=== PATIENT | male | born 1950 | race Caucasian/White ===

== ENCOUNTER 2016-07-22 09:33 | Inpatient (IN) | payer BC, OTHER ==
[2016-07-07 13:05] VITALS: BMI 34.0
--- NOTE | 2016-07-07 13:42 | PAT Medication Instructions ---
Service Date Jul 07, 2016. Current Home Medication List Aspirin (Aspirin Ec), 81 MG PO QAM Atenolol (Tenormin), 25 MG PO QAM Atorvastatin (Lipitor), 40 MG PO QAM Ibuprofen (Ibuprofen), 400 MG PO PRN Losartan Potassium (Cozaar), 25 MG PO QAM Multivitamin (Multivitamin), 1 TAB PO QAM Omeprazole (Prilosec), 20 MG PO QAM Medication Instructions For Your Scheduled Surgery Ibuprofen (Ibuprofen), 400 MG PO PRN (check with surgeon for instructions) - Hold the following medications the morning of surgery: Multivitamin (Multivitamin), 1 TAB PO QAM Losartan Potassium (Cozaar), 25 MG PO QAM - Take the following medications the morning of surgery with a sip of water: Omeprazole (Prilosec), 20 MG PO QAM Atenolol (Tenormin), 25 MG PO QAM Atorvastatin (Lipitor), 40 MG PO QAM Aspirin (Aspirin Ec), 81 MG PO QAM If you have any questions please call us at [phone] (Tonja Ruvalcaba PA-C) or [phone] or [phone]
[2016-07-07 14:15] LABS: HEMATOCRIT 44.2 % (42-52); MEAN CELL VOLUME 87.2 fL (80-100); MEAN CORPUSCULAR HEMOGLOBIN 31.2 pg (25-34); MEAN CORPUSCULAR HGB CONC 35.7 g/dl (32-36); MEAN PLATELET VOLUME 10.1 fL (7.4-10.4); PLATELET COUNT 181 K/uL (130-400); RED BLOOD COUNT 5.07 M/uL (4.7-6.1); WHITE BLOOD COUNT 8.05 K/uL (4.8-10.8)
[2016-07-07 14:21] LABS: URINE APPEARANCE CLEAR (CLEAR); URINE BILIRUBIN NEG (NEG); URINE COLOR YELLOW; URINE NITRITE NEG (NEG); URINE PH 5.5 (4.5-7.5); URINE SPECIFIC GRAVITY 1.004 (1.000-1.030); UROBILINOGEN NEG (NEG)
[2016-07-07 14:34] LABS: MANUAL MICROSCOPIC REQUIRED? NO; REVIEW REQ? NO
[2016-07-07 14:51] LABS: BASO % 0.4 %; BASO ABS # 0.03 K/uL (0-0.2); COMPLETE YES; EOS % 1.4 %; IG% 0.1 %; LYMPH ABS # 4.19 K/uL (1.2-3.4); MONO % 8.6 %; NEUT % 37.5 %
--- NOTE | 2016-07-20 16:10 | HISTORY & PHYSICAL EXAMINATION ---
DATE OF ADMISSION: 07/22/2016 HISTORY OF PRESENT ILLNESS: Mr. Gaming is well known to our practice. He is having ongoing leg symptoms. He reports the pain is worsening. It is affecting daily activities. Denies bowel or bladder dysfunction. Ambulating independently. He has had prior surgery by Dr. Luna in June 2014 in the form of removal of instrumentation of L4-L5 decompression and instrumented fusion L3-L4. PAST MEDICAL HISTORY: The patient's medical history is significant for hypertension. PAST SURGICAL HISTORY: Significant for a right rotator cuff repair, right ankle surgery, left shoulder surgery, cervical surgery, and 2 lumbar fusions. ALLERGIES: None listed. MEDICATIONS: Include Zetia 10 mg a day, simvastatin 20 mg in the evening, losartan 25 mg a day, ibuprofen as needed, baby aspirin daily, atenolol 25 mg a day, potassium. SOCIAL HISTORY: He is retired. He is . Alcohol and tobacco none listed. REVIEW OF SYSTEMS: Significant for back and leg pain. FAMILY HISTORY: Noncontributory. PHYSICAL EXAMINATION: HEAD, EYES, EARS, NOSE, AND THROAT: Speech appropriate. CARDIOPULMONARY: No gross abnormalities. ABDOMEN: Soft, nontender. GENITOURINARY: Deferred. NEUROLOGIC: Cranial nerves II-XII grossly intact. MUSCULOSKELETAL: He has a well-healed lumbar incision. Ambulates with a stooped but a steady gait. Strength is intact bilateral lower extremities. 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 PLAN: Due to his decline we have reviewed surgical intervention. This would require removal of instrumentation L3-4. Lumbar decompression L1-2, L2-L3 as well as instrumented fusion T10 to the sacrum including bilateral iliac bolts. Risks, benefits, pros, cons, and alternatives were outlined in detail. The patient would like to proceed with the above-mentioned surgical planning.
[2016-07-22] VITALS (7 sets, daily range): BP systolic 98–137; BP diastolic 63–87; PULSE 58–95; TEMP 36.4–36.7; O2SAT 93–97; Ht 170.2 cm; Wt 99.3 kg
[~2016-07-22] VITALS: Ht 170.2 cm; Wt 99.3 kg
--- NOTE | 2016-07-22 07:35 | History & Physical Bridge Note ---
H&P Re-Evaluation Bridge Note: I have examined the patient, reviewed the History & Physical and in the interval since the performance of the History & Physical I have noted the following changes of clinical significance: No changes noted
[~2016-07-22 09:33] MED LIST: ASPI81TA28 PO; ATEN-173 PO; ATOR-24 PO; IBUP1CAP9 PO; LOSA25TA18 PO; MULT-506 PO; PRLSR20 PO
[2016-07-22] MEDS ORDERED: ALBUMIN HUMAN 5% 12.5 GM/250 ML VIAL IV ONE ×2 (10:46→15:12)
[2016-07-22] MEDS ORDERED: MIDAZOLAM HCL 1 MG/ML 2ML VIAL ONE (11:28)
[2016-07-22] MEDS ORDERED: FENTANYL CITRATE INJ 50 MCG/1 ML 2 ML VIAL ONE ×3 (11:28→15:07)
[2016-07-22] MEDS ORDERED: SODIUM CHLORIDE 0.9% PF 50 ML VIAL ONE (12:07)
[2016-07-22] MEDS ORDERED: BUPIVACAINE/EPINEPHRINE 0.5% MPF 1:200,000 30 ML VIAL ONE (12:07)
[2016-07-22] MEDS ORDERED: BACITRACIN 50000 UNIT VIAL ONE (12:08)
[2016-07-22] MEDS ORDERED: THROMBIN FOR SOLN 20000 UNIT KIT ONE (12:08)
[2016-07-22] MEDS ORDERED: HYDROmorphone INJ 2 MG/ML SYR/VIAL ONE (12:49)
[2016-07-22] MEDS ORDERED: ATROPINE SULFATE 0.1 MG/ML 5ML SYR IV PRN (13:45)
[2016-07-22] MEDS ORDERED: ONDANSETRON INJ 2 MG/ML 2 ML VIAL IV PRN ×2 (13:45→16:00)
[2016-07-22] MEDS ORDERED: LABETALOL HCL IV 5 MG/ML 20ML IV PRN (13:45)
[2016-07-22] MEDS ORDERED: ROCURONIUM BROMIDE 10 MG/ML 5 ML VIAL ONE ×2 (14:37→14:38)
[2016-07-22] MEDS ORDERED: NEOSTIGMINE METHYLSULFATE 5 MG/5 ML SYR ONE (14:37)
[2016-07-22] MEDS ORDERED: PROPOFOL IV EMULSION 10 MG/ML 20 ML VIAL IV ONE (14:37)
[2016-07-22] MEDS ORDERED: GLYCOPYRROLATE INJ 0.2 MG/ML VIAL ONE (14:37)
[2016-07-22] MEDS ORDERED: DEXAMETHASONE SOD INJ 4 MG/ML VIAL ONE (14:41)
[2016-07-22] MEDS ORDERED: ONDANSETRON INJ 2 MG/ML 2 ML VIAL ONE (14:41)
[2016-07-22] MEDS ORDERED: PHENYLEPHRINE 100MCG/ML 5ML SYR ONE (14:56)
[2016-07-22] MEDS ORDERED: EpHEDrine SULFATE 50MG/5ML SYR ONE (14:56)
[2016-07-22] MEDS ORDERED: SODIUM CHLORIDE 0.9% 1000ML 1,000 ML IV SCH (15:49)
--- NOTE | 2016-07-22 15:49 | [facility] Post Operative Brief Note ---
Immediate Operative Summary Operative Date Jul 22, 2016. Pre-Operative Diagnosis Adjacent Level Stenosis; Moderate to Severe at L2 - L3 Post-Operative Diagnosis Adjacent Level Stenosis; Moderate to Severe at L2 - L3 Procedure(s) Performed L1-L2, L2-L3 Lumbar Laminectomy, Decompression; Pedicle Screw Fixation; Placement of Interbody Device; T10-S1 Posterolateral Fusion; Application of Allograft, Bone Morphogenetic Protein; Iliac [place] Fixation; L3-L4 Hardware Removal Surgeon Dr. Trevor Luna Graphic Art Designer Surgeon(s) Zaida Antunez PA-C Estimated Blood Loss 1000 Findings stenosis Specimens A. Lumbar Spine Explants
[2016-07-22] MEDS ORDERED: MoRPHine SULFATE 2 MG/ML CARP ONE (15:50)
[2016-07-22] MEDS ORDERED: FLOSEAL HEMOSTATIC MATRIX 10ML TOP ONE (15:52)
[2016-07-22] MEDS ORDERED: LORAZEPAM INJ 0.5 MG in SYRINGE 0 ML IV PRN (16:00)
[2016-07-22] MEDS ORDERED: NALOXONE HCL 0.4 MG/1 ML VIAL/CARP IV PRN ×2 (16:00)
[2016-07-22] MEDS ORDERED: ACETAMINOPHEN IV 100 ML IV PRN (16:00)
[2016-07-22] MEDS ORDERED: BISACODYL 10 MG SUPP PR PRN (16:00)
[2016-07-22] MEDS ORDERED: DO NOT ADMINISTER PNEUMOCOCCAL VACCINE PRN ×2 (16:00)
[2016-07-22] MEDS ORDERED: MAGNESIUM HYDROXIDE SUSP 30 ML UDC PO PRN (16:00)
[2016-07-22] MEDS ORDERED: ACETAMINOPHEN 500 MG TAB PO PRN (16:00)
[2016-07-22] MEDS ORDERED: SOD PHOSPHATE/SOD BIPHOSPHATE ENEMA 132 ML BTL PR PRN (16:00)
[2016-07-22] MEDS ORDERED: LORAZEPAM 0.5 MG TAB PO PRN (16:00)
[2016-07-22] MEDS ORDERED: hydrOXYzine HCL 25 MG TAB PO PRN (16:00)
[2016-07-22] MEDS ORDERED: FAMOTIDINE 20 MG TAB PO PRN (16:00)
[2016-07-22] MEDS ORDERED: ALUMINUM/MAGNESIUM SUSP 30 ML UDC PO PRN (16:00)
[2016-07-22] MEDS ORDERED: METOCLOPRAMIDE HCL INJ 5 MG/ML 2 ML VIAL IV PRN (16:00)
[2016-07-22] MEDS ORDERED: PROMETHAZINE HCL INJ 12.5 MG in SODIUM CHLORIDE 0.9% 50ML 50 ML IV PRN (16:00)
[2016-07-22] MEDS ORDERED: DO NOT ADMINISTER FLU VACCINE PRN ×3 (16:00)
--- NOTE | 2016-07-22 16:19 | DIAGNOSTIC IMAGING REPORT ---
INTRAOPERATIVE RADIOGRAPHS CLINICAL HISTORY: T10-S1 spinal fusion with iliac bolt placement. Fluoroscopy time: 48 seconds. FINDINGS: 7 spot fluoroscopic views of the thoracal lumbar spine are presented. There is evidence of extensive thoracolumbar spinal fusion, reportedly from T10 to S1. Iliac bolts are in place. There is been discectomy at several levels. The orthopedic hardware appears intact. IMPRESSION: Intraoperative images from T10 to S1 spinal fusion with iliac bolt placement as above. Electronically signed by: Don Marks M.D. 07/22/2016 4:18 PM Dictated Date/Time: 07/22/2016 4:17 PM
[2016-07-22] MEDS ORDERED: HYDROmorphone HCL 0.5MG/ML 50 ML CASSETTE ONE (16:23)
[2016-07-22] MEDS: HYDROmorphone INJ 2 MG/ML SYR/VIAL IV PRN ×2 (16:34→16:39)
--- NOTE | 2016-07-22 17:06 | OPERATIVE REPORT ---
DATE OF OPERATION: 07/22/2016 PREOPERATIVE DIAGNOSIS: Spinal stenosis. POSTOPERATIVE DIAGNOSIS: Same. PROCEDURES PERFORMED: 1. Removal of posterior instrumentation, L3-L4. 2. Exploration of fusion, L3-L4. 3. Lumbar decompression, medial facetectomies, foraminotomies L1-L2, L2-L3. 4. Posterior spinal fusion T10-S1. 5. Bilateral SI joint fusions. 6. Placement of posterior segmental instrumentation using Medicrea rods and screws as well as a crosslink including bilateral iliac bolts T10-S1. 7. Interbody fusion L2-L3. 8. Placement of PEEK cage 12 x 22 mm at L2-L3. 9. Placement of locally harvested morcellized autograft in posterior gutters. 10. Placement of Infuse collagen sponge combined with Mastergraft in posterior gutters and [place] bone grafting in the interbody space. SURGEON: Dr. Trevor Luna. STARTER MECHANIC: STEVEN Bruno. Due to the complex nature of the procedure, the entire surgery was performed with the product development assistant of STEVEN Bruno. The emergency veterinary assistant, under direct supervision, was involved in the actual performance of all aspects of the surgical procedure including hemostasis, tissue retraction and incision, instrument management, patient positioning, and wound closure. ANESTHESIA: General. DISPOSITION: The patient was awakened and taken to PACU in stable condition. HISTORY OF PATIENT'S PROBLEMS: This is a 65-year-old male who presents with above-mentioned diagnosis. After failing an extensive course of nonoperative care, elected to undergo the above-mentioned procedure. Risks, benefits, pros, cons, and alternatives were outlined in detail preoperatively. DESCRIPTION OF PROCEDURE: The patient was met with preoperatively, case discussed and all questions were addressed. At that point, patient was taken back to operative suite and after undergoing successful general intubation by the department of anesthesia, was placed in prone position on Kan table atop the Zak frame. All bony prominences were well padded and the eyes were inspected to ensure there was no external pressure placed upon them. At this point, thoracolumbar spine was prepped and draped in normal sterile fashion. Sharp dissection with the assistance of Bovie cautery was performed down to and exposing the lamina and transverse processes of T10, T11, T12, L1, L2 and instrumentation at L3, L4 levels and the lamina of L4, L5 and the sacral ala bilaterally. I then proceeded to remove the hardware at L4-L5 bilaterally exploring the fusion mass noting to be intact. I then performed a complete laminectomy of L2, partial laminectomy of L1 addressing severe lateral recess and foraminal disease. Pedicle screws were then placed in T10, T11, T12, L1, L2, L3, L4, S1, as well as bilateral iliac bolts. Through a transforaminal approach on the left, a complete discectomy at L2-L3 was performed, endplates curetted to subcortical bleeding bone and a 12 x 22 mm PEEK cage filled with [place] bone grafting tapped into position. Appropriate size rods were then cut, contoured and locked into final position bilaterally including a crosslink and transverse processes of T10, T11, T12, L1, L2, L3, L5, sacral ala and bilateral SI joints were burred to subcortical bleeding bone. Infuse collagen sponge combined with Mastergraft locally harvested morselized autograft was placed. A 7 flat CARINA drain was inserted. Incision was closed with 1-0 Vicryl in the fascia, 2-0 Vicryl subcutaneously, 4-0 Monocryl for final skin closure. Steri-Strips and sterile dressing placed. The patient was awakened and taken to PACU in stable condition. I attest to the content of the Intraoperative Record and any orders documented therein. Any exceptio ns are noted below.
--- NOTE | 2016-07-22 17:10 | Anesthesiology Progress Note ---
Anesthesia Post Op Note Date & Time Jul 22, 2016 at 17:09 Vital Signs Pain Intensity: 4 Vital Signs Past 12 Hours Date Time Temp Pulse Resp B/P Pulse Ox O2 Delivery O2 Flow Rate FiO2 07/22/16 17:05 36.7 79 16 106/59 95 Nasal Cannula 4 07/22/16 17:02 108/60 07/22/16 17:00 98/62 07/22/16 16:58 70 12 07/22/16 16:58 70 12 95 07/22/16 16:55 109/66 07/22/16 16:53 75 12 94 07/22/16 16:53 75 12 07/22/16 16:52 106/60 07/22/16 16:50 83/59 07/22/16 16:48 73 16 07/22/16 16:48 73 16 92 07/22/16 16:45 101/55 07/22/16 16:43 78 16 07/22/16 16:43 78 16 93 07/22/16 16:40 110/58 07/22/16 16:38 75 12 07/22/16 16:38 75 12 90 07/22/16 16:35 111/86 07/22/16 16:33 101 21 07/22/16 16:33 101 21 95 07/22/16 16:32 105/79 07/22/16 16:28 85 18 07/22/16 16:28 85 18 99 07/22/16 16:25 119/65 07/22/16 16:23 92 15 128/74 99 07/22/16 16:23 92 15 07/22/16 16:23 37.3 92 16 128/74 98 Mask 10 07/22/16 10:23 36.7 58 20 137/87 94 Room Air Notes Mental Status: alert / awake / arousable, participated in evaluation Pt Amnestic to Procedure: Yes Nausea / Vomiting: adequately controlled Pain: adequately controlled Airway Patency, RR, SpO2: stable & adequate BP & HR: stable & adequate Hydration State: stable & adequate Anesthetic Complications: no major complications apparent
[2016-07-22] MEDS: HYDROmorphone HCL 0.5MG/ML 50 ML CASSETTE IV PRN ×2 (17:29→22:38)
[2016-07-22] MEDS: LACTATED RINGER'S 1000ML 1,000 ML IV SCH ×2 (18:19→21:28)
--- NOTE | 2016-07-22 18:36 | Medical Consult ---
Consultation Date of Consultation: Jul 22, 2016. Attending Physician: Trevor Luna D.O. Reason for Consultation: Post Op Medical Management History of Present Illness 65 year old male who is s/p L1-2 laminectomy and decompression, T10-S1 fusion, L3-4 hardware removal today by Dr. Luna. Patient reports increasing back pain since December 2015. He failed outpatient conservative measures and presented for the planned procedure today. Post operatively the patient is having incisional back pain. He currently rates it #8/10. Nurse is currently giving pain medication. He denies any radiation of the pain into his legs. No numbness or tingling to BLLE. He denies chest pain and shortness of breath. No abdominal pain, nausea, or vomiting. He denies lightheadedness, dizziness, and diaphoresis. Ogles[place] is in place draining clear yellow urine. 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 Status: Chronic (2) Dyslipidemia Status: Chronic (3) HTN (hypertension) Status: Chronic (4) Pulmonary embolism Status: Chronic Surgical Problems: (1) H/O repair of left rotator cuff Status: Chronic (2) History of surgery on arm Permanent Comment: left Status: Chronic (3) Hx of appendectomy Status: Chronic (4) S/P cervical spinal fusion Status: Chronic (5) S/P cholecystectomy Status: Chronic (6) S/P IVC filter Permanent Comment: s/p removal Status: Chronic (7) S/P lumbar fusion Status: Chronic Social History Smoking Status: Never Smoker Alcohol Use: none Allergies Coded Allergies: No Known Allergies (Unverified , 07/22/16) Home Medications Ibuprofen 200 Mg Cap 400 Mg PO PRN Prilosec (Omeprazole) 20 Mg Capcr 20 Mg PO QAM Lipitor (Atorvastatin Calcium) 40 Mg Tab 40 Mg PO QAM Multivitamin (Multivitamins) Tab 1 Tab PO QAM Cozaar (Losartan Potassium) 25 Mg Tab 25 Mg PO QAM Aspirin Ec (Aspirin) 81 Mg Tab 81 Mg PO QAM Tenormin (Atenolol) 25 Mg Tab 25 Mg PO QAM Current Inpatient Medications Current Inpatient Medications Medications (Trade) Dose Ordered Sig/Debby Route Start Time Stop Time Status Last Admin Dose Admin Cefazolin Sodium 60 ml @ 100 mls/hr PREOP IV 07/23/16 06:00 07/23/16 18:00 07/22/16 12:24 100 MLS/HR Lactated Ringer's (Lr 1000ml) 1,000 ml @ 15 mls/hr Q24H IV 07/23/16 06:00 07/24/16 05:59 07/22/16 10:36 15 MLS/HR Ondansetron HCl (Zofran Inj) 4 mg ONE PRN IV 07/22/16 13:45 07/22/16 18:45 Atropine Sulfate (Atropine Sulfate 0.1MG/Ml Inj) 0.5 mg Q1M PRN IV 07/22/16 13:45 07/22/16 18:45 Hydromorphone HCl (Dilaudid Inj) 0.25 mg Q5M PRN IV 07/22/16 13:45 07/22/16 18:45 07/22/16 16:39 0.25 MG Labetalol HCl 5 mg 5 mg Q5M PRN IV 07/22/16 13:45 07/22/16 18:45 Dexamethasone Sodium Phosphate 6 mg/Syringe 1.5 ml @ 1 mls/min Q8H IV 07/22/16 22:00 07/23/16 14:02 Promethazine HCl/ Sodium Chloride (Phenergan Inj/ Nss 50ml) 50.5 ml @ 202 mls/hr Q6H PRN IV 07/22/16 16:00 08/21/16 15:59 Ondansetron HCl (Zofran Inj) 4 mg Q6H PRN IV 07/22/16 16:00 08/21/16 15:59 Metoclopramide HCl (Reglan Inj) 10 mg Q6H PRN IV 07/22/16 16:00 08/21/16 15:59 Lorazepam 0.5 mg 0.5 mg Q8H PRN PO 07/22/16 16:00 08/21/16 15:59 Lorazepam/Syringe (Ativan Inj/ Syringe) 0.25 ml @ 1 mls/min Q8H PRN IV 07/22/16 16:00 08/21/16 15:59 07/22/16 18:18 1 MLS/MIN Pneumococcal Polysaccharide Vaccine 1 ea PRN PRN N/A 07/22/16 16:00 08/21/16 15:59 Influenza Virus Vacc Triv Types A&B 1 ea PRN PRN N/A 07/22/16 16:00 08/21/16 15:59 Polyethylene (Miralax Powder Packet) 17 gm Q6 PO 07/24/16 06:00 08/23/16 05:59 Bisacodyl (Dulcolax Supp) 10 mg DAILY PRN MA 07/22/16 16:00 08/21/16 15:59 Magnesium Hydroxide (Milk Of Magnesia Susp) 30 ml DAILY PRN PO 07/22/16 16:00 08/21/16 15:59 Hydromorphone HCl (Dilaudid Inj) 0.5 mg Q3H PRN IV 07/23/16 06:00 08/06/16 05:59 Oxycodone HCl 5-10mg prn moderate to sev... Q4H PRN PO 07/23/16 06:00 08/06/16 05:59 Cefazolin Sodium 2000 mg/Dextrose 60 ml @ 100 mls/hr Q8H IV 07/22/16 20:00 07/23/16 04:35 Lactated Ringer's (Lr 1000ml) 1,000 ml @ 150 mls/hr Q6H40M IV 07/22/16 15:49 08/21/16 15:48 07/22/16 18:19 150 MLS/HR Acetaminophen 1000 mg 1,000 mg Q8H PRN PO 07/22/16 16:00 08/21/16 15:59 Acetaminophen (Ofirmev Iv) 100 ml @ 400 mls/hr Q8H PRN IV 07/22/16 16:00 08/21/16 15:59 07/22/16 18:17 400 MLS/HR Naloxone HCl (Narcan Inj) 0.1 mg Q5M PRN IV 07/22/16 16:00 08/21/16 15:59 Senna/Docusate Sodium (Senokot S Tab) 2 tab HS PO 07/22/16 21:00 08/21/16 20:59 Sodium Biphosphate/ Sodium Phosphate (Fleet Enema) 132 ml ONE PRN MA 07/22/16 16:00 08/21/16 15:59 Hydroxyzine HCl (Vistaril Tab) 25 mg Q8H PRN PO 07/22/16 16:00 08/21/16 15:59 Al Hydroxide/Mg Hydroxide (Maalox Susp) 30 ml Q6H PRN PO 07/22/16 16:00 08/21/16 15:59 Famotidine (Pepcid Tab) 20 mg Q12 PRN PO 07/22/16 16:00 08/21/16 15:59 Diphenhydramine HCl (Benadryl Cap) 25 mg Q6H PRN PO 07/22/16 16:00 08/21/16 15:59 Miscellaneous Information (Discontinue CERTIFIED ANESTHESIOLOGIST ASSISTANT) 1 ea TODAY@0600 ONCE N/A 07/23/16 06:00 07/23/16 06:01 Naloxone HCl (Narcan Inj) 0.1 mg Q5M PRN IV 07/22/16 16:00 07/23/16 06:00 Hydromorphone HCl 25 mg 25 mg PRN PRN IV 07/22/16 16:00 07/23/16 06:00 07/22/16 17:29 25 MG Sodium Chloride (Nss 1000ml) 1,000 ml @ 15 mls/hr Q24H IV 07/22/16 15:49 07/23/16 06:00 Aspirin (Ecotrin Tab) 81 mg QAM PO 07/23/16 09:00 08/22/16 08:59 Atenolol (Tenormin Tab) 25 mg QAM PO 07/23/16 09:00 08/22/16 08:59 Atorvastatin Calcium (Lipitor Tab) 40 mg QAM PO 07/23/16 09:00 08/22/16 08:59 Losartan Potassium (coZAAR TAB) 25 mg QAM PO 07/23/16 09:00 08/22/16 08:59 Pantoprazole Sodium (Protonix Tab) 40 mg QAM PO 07/23/16 09:00 08/22/16 08:59 Hydromorphone HCl (Dilaudid Inj) 1 mg Q3H PRN IV 07/23/16 06:00 08/06/16 05:59 Review of Systems 10 point review of systems was completed with the pertinent positives and negatives noted per the HPI Physical Exam Date Time Temp Pulse Resp B/P Pulse Ox O2 Delivery O2 Flow Rate FiO2 07/22/16 18:00 36.6 86 14 107/69 97 Nasal Cannula 4.0 07/22/16 17:30 36.5 85 14 99/63 97 Nasal Cannula 4.0 07/22/16 17:30 Nasal Cannula 4.0 07/22/16 17:30 Nasal Cannula 4.0 07/22/16 17:18 79 13 07/22/16 17:18 80 13 95 07/22/16 17:15 104/67 07/22/16 17:13 87 14 07/22/16 17:13 87 14 96 07/22/16 17:10 105/60 07/22/16 17:08 86 19 106/59 96 07/22/16 17:08 86 19 07/22/16 17:07 83/61 07/22/16 17:05 98/59 07/22/16 17:05 36.7 79 16 106/59 95 Nasal Cannula 4 07/22/16 17:03 78 16 95 07/22/16 17:03 78 16 07/22/16 17:02 108/60 07/22/16 17:00 98/62 07/22/16 16:58 70 12 07/22/16 16:58 70 12 95 07/22/16 16:55 109/66 07/22/16 16:53 75 12 94 07/22/16 16:53 75 12 07/22/16 16:52 106/60 07/22/16 16:50 83/59 07/22/16 16:48 73 16 07/22/16 16:48 73 16 92 07/22/16 16:45 101/55 07/22/16 16:43 78 16 07/22/16 16:43 78 16 93 07/22/16 16:40 110/58 07/22/16 16:38 75 12 07/22/16 16:38 75 12 90 07/22/16 16:35 111/86 07/22/16 16:33 101 21 07/22/16 16:33 101 21 95 07/22/16 16:32 105/79 07/22/16 16:28 85 18 07/22/16 16:28 85 18 99 07/22/16 16:25 119/65 17 16:23 92 15 128/74 99 17 16:23 92 15 17 16:23 37.3 92 16 128/74 98 Mask 10 07/22/16 10:23 36.7 58 20 137/87 94 Room Air General Appearance: no apparent distress Head: normocephalic Eyes: normal inspection ENT: hearing grossly normal Neck: supple, no JVD Respiratory/Chest: lungs clear, normal breath sounds, no respiratory distress Cardiovascular: regular rate, rhythm, no edema, normal peripheral pulses Abdomen/GI: normal bowel sounds, non tender, soft, + distended Back: + pertinent finding (s/p back surgery, CSM checks intact to BLLE, pedal pushes and pulls strong BL) Extremities/Musculoskelatal: normal inspection, no calf tenderness Neurologic/Psych: no motor/sensory deficits, alert, normal mood/affect, oriented x 3 Skin: normal color, warm/dry Laboratory Results Last 24 Hours Test 07/22/16 18:06 Assessment & Plan S/P L1-2 LAMINECTOMY, DECOMPRESSION T10-S1 FUSION L3-4 HARDWARE REMOVAL - POD#0 - activity and wound care orders as per ortho - pain control with bowel regimen - PT/OT - monitor H/H for acute blood loss anemia and transfuse blood products PRN HTN - BP controlled, continue losartan and atenolol HX DVT/PE - hx of in 2012, provoked after surgery - had IVF filter in place but has been removed - recommend pharmacologic prophylaxis when ok with surgery HLD - continue statin DVT PROPHYLAXIS - as above Thank you for this consultation. We will follow the patient with you during their hospital stay. You can reach a member of the [facility] Hospitalist Team 13/12 via pager @ . Agree with above consult note. Briefly 65M is s/p shyam surgery. has back pain. afebrile. denies chest opain or sob. p/e ge not in distress Cvs s1 and s2 heard no murmurs Rs cta b/l no added sounds Abd benign musculoskeletal s/p back surgery. a/p back surgery management as per ortho HTN home meds will monitor
[2016-07-22] MEDS: CEFAZOLIN IV 2,000 MG in DEXTROSE 5% 50ML 50 ML IV SCH (20:30)
[2016-07-22] MEDS: DOCUSATE SODIUM/SENNA 50/8.6MG TAB PO SCH (20:30)
[2016-07-22] MEDS: DEXAMETHASONE INJ 6 MG in SYRINGE 0 ML IV SCH (21:28)
[2016-07-23] VITALS (9 sets, daily range): BP systolic 104–121; BP diastolic 67–79; PULSE 79–92; TEMP 36.8–37.2; O2SAT 91–98
[2016-07-23] MEDS: CEFAZOLIN IV 2,000 MG in DEXTROSE 5% 50ML 50 ML IV SCH (03:58)
[2016-07-23] MEDS: LACTATED RINGER'S 1000ML 1,000 ML IV SCH (03:58)
[2016-07-23 05:47] LABS: COMPLETE YES; HEMATOCRIT 29.2 % (42-52); IG% 0.2 %; LYMPH % 12.5 %; LYMPH ABS # 1.55 K/uL (1.2-3.4); MEAN CELL VOLUME 86.6 fL (80-100); MEAN CORPUSCULAR HGB CONC 34.6 g/dl (32-36); MEAN PLATELET VOLUME 9.9 fL (7.4-10.4); MONO % 6.4 %; NEUT % 80.9 %; PLATELET COUNT 140 K/uL (130-400); RED BLOOD COUNT 3.37 M/uL (4.7-6.1); WHITE BLOOD COUNT 12.44 K/uL (4.8-10.8)
[2016-07-23] MEDS: DEXAMETHASONE INJ 6 MG in SYRINGE 0 ML IV SCH ×2 (05:53→13:40)
[2016-07-23] MEDS ORDERED: NURSING DECISION MEDICATION ORDER SCH (06:00)
[2016-07-23] MEDS ORDERED: LACTATED RINGER'S 1000ML 1,000 ML IV SCH (06:00)
[2016-07-23] MEDS ORDERED: CEFAZOLIN 2000 MG/60 ML D5W IV SCH (06:00)
[2016-07-23] MEDS ORDERED: HYDROmorphone INJ 0.5 MG/0.5 ML SYR IV PRN (06:00)
[2016-07-23] MEDS ORDERED: DC PCA ONE (06:00)
[2016-07-23] MEDS ORDERED: HYDROmorphone INJ 1 MG/ML SYR IV PRN (06:00)
[2016-07-23 06:14] LABS: BUN/CREATININE RATIO 17.1 (10-20); POTASSIUM 4.1 mmol/L (3.5-5.1)
[2016-07-23 06:18] LABS: CALCIUM 8.5 mg/dl (8.5-10.1)
[2016-07-23] MEDS: PANTOprazole SOD 40 MG TAB PO SCH (07:47)
--- NOTE | 2016-07-23 08:11 | Anesthesiology Progress Note ---
Anesthesia Post Op Note Date & Time Jul 23, 2016 at 08:11 Vital Signs Pain Intensity: 2.0 Vital Signs Past 12 Hours Date Time Temp Pulse Resp B/P Pulse Ox O2 Delivery O2 Flow Rate FiO2 07/23/16 07:49 37.0 92 20 110/79 92 Room Air 07/23/16 06:50 36.8 85 16 115/68 95 Room Air 07/23/16 03:27 37.0 92 16 119/74 96 Nasal Cannula 2.0 07/22/16 23:09 36.7 90 16 109/68 97 Nasal Cannula 2.0 07/22/16 22:40 Nasal Cannula 2.0 07/22/16 20:29 36.4 84 18 102/68 97 Nasal Cannula 4.0 Notes Mental Status: alert / awake / arousable, participated in evaluation Pt Amnestic to Procedure: Yes Nausea / Vomiting: adequately controlled Pain: adequately controlled Airway Patency, RR, SpO2: stable & adequate BP & HR: stable & adequate Hydration State: stable & adequate Anesthetic Complications: no major complications apparent
[2016-07-23] MEDS: ATORVASTATIN 40 MG TAB PO SCH (08:40)
[2016-07-23] MEDS: ASPIRIN 81 MG ECTAB PO SCH (08:40)
[2016-07-23] MEDS: OXYCODONE HCL IR 5 MG TAB (IMMEDIATE RELEASE) PO PRN (08:41)
[2016-07-23] MEDS: LOSARTAN POTASSIUM 25 MG TAB PO SCH (09:37)
--- NOTE | 2016-07-23 11:01 | PROGRESS NOTE ---
DATE: 07/23/2016 SUBJECTIVE: Postop day #1. Back pain is controlled. Leg pain markedly improved. Vital signs stable. T-max 37.0. CARINA drained 240 mL. Hematocrit 29.2. OBJECTIVE: On exam, the patient is sitting in chair at bedside. He has good strength to testing and is much more comfortable. ASSESSMENT: Status post thoracolumbar decompression and fusion. PLAN: At this time, will continue physical therapy, advance his bowel regimen, monitor his H\T\H and consider discharge on Tuesday.
[2016-07-23] MEDS: KETOROLAC TROMETHAMINE 30 MG/ML VIAL IV PRN ×2 (11:36→20:57)
--- NOTE | 2016-07-23 19:30 | Progress Note ---
Internal Med Progress Note Date of Service: Jul 23, 2016. Provider Documentation: SUBJECTIVE: resting comfortably ambulating fine afebrile pain is better no chest pain or sob OBJECTIVE: Vital Signs-as noted below Exam: General-alert and awake and oriented. Not in distress ENT-normal hearing Neck-no neck masses Lungs-cta b/l no wheezing or crackles Heart-s1 and s2 heard, regular rate and rhythm no murmurs Abdomen-soft bowel sounds present non tender no distension Extremities-no edema no erythema Musculoskeletal s/p back surgery Dressing and drain intact Neuro-alert and awake moves extremities Lab data as noted below. ASSESSMENT & PLAN: S/P L1-2 LAMINECTOMY, DECOMPRESSION T10-S1 FUSION L3-4 HARDWARE REMOVAL POD#1 management as per ortho HTN stable on losartan and atenolol HX DVT/PE hx of in 2013, provoked after surgery had IVF filter in place but has been removed recommend pharmacologic prophylaxis as soon as possible when ok with surgery HLD on statin DVT PROPHYLAXIS as per ortho DISPOSITION as per ortho Vital Signs: Date Time Temp Pulse Resp B/P Pulse Ox O2 Delivery O2 Flow Rate FiO2 07/23/16 15:35 93 Room Air 07/23/16 15:25 37.1 79 18 119/73 93 Room Air 07/23/16 11:52 36.9 85 22 112/70 91 Room Air 07/23/16 10:20 98 Room Air 07/23/16 10:10 92 96 07/23/16 07:49 37.0 92 20 110/79 92 Room Air 07/23/16 07:15 Room Air 07/23/16 06:50 36.8 85 16 115/68 95 Room Air 07/23/16 03:27 37.0 92 16 119/74 96 Nasal Cannula 2.0 07/22/16 23:09 36.7 90 16 109/68 97 Nasal Cannula 2.0 07/22/16 22:40 Nasal Cannula 2.0 07/22/16 20:29 36.4 84 18 102/68 97 Nasal Cannula 4.0 07/22/16 19:30 36.7 95 16 109/76 93 Nasal Cannula 4.0 Lab Results: Results Past 24 Hours Test 07/23/16 05:22 Range/Units White Blood Count 12.44 4.8-10.8 K/uL Red Blood Count 3.37 4.7-6.1 M/uL Hemoglobin 10.1 14.0-18.0 g/dL Hematocrit 29.2 42-52 % Mean Corpuscular Volume 86.6 80-100 fL Mean Corpuscular Hemoglobin 30.0 25-34 pg Mean Corpuscular Hemoglobin Concent 34.6 32-36 g/dl Platelet Count 140 130-400 K/uL Mean Platelet Volume 9.9 7.4-10.4 fL Neutrophils (%) (Auto) 80.9 % Lymphocytes (%) (Auto) 12.5 % Monocytes (%) (Auto) 6.4 % Eosinophils (%) (Auto) 0.0 % Basophils (%) (Auto) 0.0 % Neutrophils # (Auto) 10.06 1.4-6.5 K/uL Lymphocytes # (Auto) 1.55 1.2-3.4 K/uL Monocytes # (Auto) 0.80 0.11-0.59 K/uL Eosinophils # (Auto) 0.00 0-0.5 K/uL Basophils # (Auto) 0.00 0-0.2 K/uL RDW Standard Deviation 41.6 36.4-46.3 fL RDW Coefficient of Variation 13.2 11.5-14.5 % Immature Granulocyte % (Auto) 0.2 % Immature Granulocyte # (Auto) 0.03 0.00-0.02 K/uL Sodium Level 141 136-145 mmol/L Potassium Level 4.1 3.5-5.1 mmol/L Chloride Level 106 98-107 mmol/L Carbon Dioxide Level 24 21-32 mmol/L Anion Gap 11.0 3-11 mmol/L Blood Urea Nitrogen 17 7-18 mg/dl Creatinine 1.00 0.60-1.40 mg/dl Est Creatinine Clear Calc Drug Dose 82.7 ml/min Estimated GFR () 91.1 Estimated GFR (Non- 78.6 BUN/Creatinine Ratio 17.1 10-20 Random Glucose 161 70-99 mg/dl Calcium Level 8.5 8.5-10.1 mg/dl
[2016-07-23] MEDS: DOCUSATE SODIUM/SENNA 50/8.6MG TAB PO SCH (20:57)
[2016-07-24] MEDS: POLYETHYLENE (MIRALAX) 17 GM PACK PO SCH ×4 (05:32→23:24)
[2016-07-24 07:50] VITALS: BP 117/73; PULSE 73; TEMP 37; O2SAT 94
[2016-07-24] MEDS: ATORVASTATIN 40 MG TAB PO SCH (08:42)
[2016-07-24] MEDS: PANTOprazole SOD 40 MG TAB PO SCH (08:42)
[2016-07-24] MEDS: LOSARTAN POTASSIUM 25 MG TAB PO SCH (08:42)
[2016-07-24] MEDS: ASPIRIN 81 MG ECTAB PO SCH (08:42)
[2016-07-24] MEDS: KETOROLAC TROMETHAMINE 30 MG/ML VIAL IV PRN ×2 (08:46→17:34)
[2016-07-24 16:05] VITALS: BP 114/72; PULSE 63; TEMP 36.8; O2SAT 95
[2016-07-24] MEDS: DOCUSATE SODIUM/SENNA 50/8.6MG TAB PO SCH (21:56)
[2016-07-24 23:01] VITALS: BP 114/64; PULSE 61; TEMP 37; O2SAT 96
[2016-07-25] MEDS: OXYCODONE HCL IR 5 MG TAB (IMMEDIATE RELEASE) PO PRN ×2 (04:32→22:54)
[2016-07-25] MEDS: POLYETHYLENE (MIRALAX) 17 GM PACK PO SCH ×3 (05:46→17:59)
[2016-07-25 06:44] VITALS: BP 119/77; PULSE 70; TEMP 37.1; O2SAT 96
[2016-07-25 08:20] VITALS: BP 112/72; PULSE 87
[2016-07-25] MEDS: ASPIRIN 81 MG ECTAB PO SCH (08:21)
[2016-07-25] MEDS: ATORVASTATIN 40 MG TAB PO SCH (08:22)
[2016-07-25] MEDS: PANTOprazole SOD 40 MG TAB PO SCH (08:22)
[2016-07-25] MEDS: LOSARTAN POTASSIUM 25 MG TAB PO SCH (08:22)
[2016-07-25] MEDS: KETOROLAC TROMETHAMINE 30 MG/ML VIAL IV PRN ×2 (08:27→15:22)
[2016-07-25 15:10] VITALS: BP 100/63; PULSE 67; TEMP 37; O2SAT 95
--- NOTE | 2016-07-25 19:09 | Progress Note ---
Internal Med Progress Note Date of Service: Jul 25, 2016. Provider Documentation: SUBJECTIVE: resting comfortably says pain is better ambulating fine denies any sob afebrile OBJECTIVE: Vital Signs-as noted below Exam: General-alert and awake and oriented. Not in distress ENT-normal hearing Neck-no neck masses Lungs-cta b/l no wheezing or crackles Heart-s1 and s2 heard, regular rate and rhythm no murmurs Abdomen-soft bowel sounds present non tender no distension Extremities-no edema no erythema Musculoskeletal s/p back surgery Dressing and drain intact Neuro-alert and awake moves extremities Lab data as noted below. ASSESSMENT & PLAN: S/P L1-2 LAMINECTOMY, DECOMPRESSION T10-S1 FUSION L3-4 HARDWARE REMOVAL POD#3 management as per ortho HTN stable on losartan and atenolol will monitor HX DVT/PE hx of in 2013, provoked after surgery had IVF filter in place but has been removed recommend pharmacologic prophylaxis as soon as possible when ok with surgery HLD on statin DVT PROPHYLAXIS as per ortho DISPOSITION as per ortho Vital Signs: Date Time Temp Pulse Resp B/P Pulse Ox O2 Delivery O2 Flow Rate FiO2 07/25/16 16:02 Room Air 07/25/16 15:10 37.0 67 18 100/63 95 Room Air 07/25/16 08:20 87 112/72 07/25/16 08:15 Room Air 07/25/16 06:44 37.1 70 18 119/77 96 Room Air 07/24/16 23:15 Room Air 07/24/16 23:01 37.0 61 16 114/64 96 Room Air
[2016-07-25] MEDS: DOCUSATE SODIUM/SENNA 50/8.6MG TAB PO SCH (20:52)
[2016-07-25] MEDS ORDERED: NURSING VERBAL MED ORDER ONE (23:15)
[2016-07-25 23:26] VITALS: BP 107/67; PULSE 69; TEMP 37.2; O2SAT 95
[2016-07-26 06:26] VITALS: BP 121/73; PULSE 69; TEMP 36.8; O2SAT 95
[2016-07-26] MEDS: KETOROLAC TROMETHAMINE 30 MG/ML VIAL IV PRN ×3 (07:09→21:05)
[2016-07-26 07:50] VITALS: BP 120/82; PULSE 70; TEMP 36.8; O2SAT 96
[2016-07-26 08:14] LABS: BUN/CREATININE RATIO 13.9 (10-20); CALCIUM 8.5 mg/dl (8.5-10.1); CREATININE 0.95 mg/dl (0.60-1.40); POTASSIUM 4.1 mmol/L (3.5-5.1)
--- NOTE | 2016-07-26 08:16 | PROGRESS NOTE ---
DATE: 07/26/2016 SUBJECTIVE: The patient is postoperative day 4 thoracolumbar decompression and fusion. He has been doing well. He has noted overnight though he is not feeling well. He has lower abdominal discomfort. He has had a bowel movement both this morning as well as yesterday. He reports he is passing flatus. Denies any nausea or vomiting. Denies lower extremity pain. His last CARINA output was 80 mL last shift. A total of 235 mL past 24 hours. Yesterday in physical therapy he was ambulating roughly 500 feet plus steps. PHYSICAL EXAMINATION: GENERAL: He is lying in bed. He is in no obvious distress. He is afebrile. VITAL SIGNS: Stable. LOWER EXTREMITIES: Neurovascularly intact. Lumbar dressing is clean, dry and intact. ASSESSMENT: Postop day 4 thoracolumbar decompression and fusion. PLAN: Will have him stay another day. Again, he is passing gas, had bowel movement. He does note he is sensitive to narcotics. Again, we will go lightly with these. DVT prophylaxis is in the form of TEDs and SCDs. He does have a history of a DVT roughly 4 years ago status post rotator cuff repair. He currently reports he does not take any anticoagulation for this.
--- NOTE | 2016-07-26 08:25 | DIAGNOSTIC IMAGING REPORT ---
KUB CLINICAL HISTORY: Generalized abdominal pain COMPARISON STUDY: No previous studies for comparison. FINDINGS: There are postsurgical changes within the spine. There are spinal rods with posterior pedicle screw fixation extending from the T10-S1 level. Bilateral sacroiliac bolts are also visualized. There is a posterior drain. There is no pathologic bowel dilatation. There are surgical clips within the right upper quadrant consistent with a prior cholecystectomy. There is a moderate amount of stool present within the right colon. There is a possible small right pleural effusion. IMPRESSION: Postsurgical changes within the lumbar spine. No evidence of pathologic bowel dilatation. Electronically signed by: Arnaud Cuevas M.D. 07/26/2016 8:24 AM Dictated Date/Time: 07/26/2016 8:22 AM
[2016-07-26 08:36] VITALS: O2SAT 96
[2016-07-26] MEDS: ATORVASTATIN 40 MG TAB PO SCH (08:46)
[2016-07-26] MEDS: ASPIRIN 81 MG ECTAB PO SCH (08:46)
[2016-07-26] MEDS: LOSARTAN POTASSIUM 25 MG TAB PO SCH (08:46)
[2016-07-26] MEDS: PANTOprazole SOD 40 MG TAB PO SCH (08:46)
--- NOTE | 2016-07-26 13:56 | DIAGNOSTIC IMAGING REPORT ---
ABDOMINAL ULTRASOUND, RIGHT UPPER QUADRANT HISTORY: elevATED TRANSAMINASES. COMPARISON: Abdomen and pelvis CT 01/14/2016. FINDINGS: Pancreas: Not well visualized due to overlying bowel gas. Liver: Unremarkable. Gallbladder: The gallbladder is surgically absent. CBD: 5 mm Right kidney: No hydronephrosis. IMPRESSION: 1. Prior cholecystectomy. 2. Normal caliber common bile duct. 3. Pancreas is not well visualized due to overlying bowel gas. Electronically signed by: London Sanches M.D. 07/26/2016 1:55 PM Dictated Date/Time: 07/26/2016 1:53 PM
[2016-07-26 15:42] VITALS: BP 123/75; PULSE 66; TEMP 37.1; O2SAT 95
[2016-07-26] MEDS: OXYCODONE HCL IR 5 MG TAB (IMMEDIATE RELEASE) PO PRN ×2 (17:33→23:40)
--- NOTE | 2016-07-26 19:03 | Progress Note ---
Internal Med Progress Note Date of Service: Jul 26, 2016. Provider Documentation: SUBJECTIVE: resting comfortably sasys in the morning after moving his bowels and was shaving felt lightheaded and sweaty but resolved now denies any pain no chest pain or sob afebrile OBJECTIVE: Vital Signs-as noted below Exam: General-alert and awake and oriented. Not in distress ENT-normal hearing Neck-no neck masses Lungs-cta b/l no wheezing or crackles Heart-s1 and s2 heard, regular rate and rhythm no murmurs Abdomen-soft bowel sounds present non tender no distension Extremities-no edema no erythema Musculoskeletal s/p back surgery Dressing and drain intact Neuro-alert and awake moves extremities Lab data as noted below. ASSESSMENT & PLAN: S/P L1-2 LAMINECTOMY, DECOMPRESSION T10-S1 FUSION L3-4 HARDWARE REMOVAL POD#4 management as per ortho HTN stable on losartan and atenolol stable will monitor HX DVT/PE hx of in 2013, provoked after surgery had IVF filter in place but has been removed recommend pharmacologic prophylaxis as soon as possible when ok with surgery Mild transaminitis from Tylenol? liver u/s unremarkable hold Lipitor f/u labs with pcp HLD hold Lipitor for above reasons until seen by pcp. DVT PROPHYLAXIS as per ortho DISPOSITION as per ortho Vital Signs: Date Time Temp Pulse Resp B/P Pulse Ox O2 Delivery O2 Flow Rate FiO2 07/26/16 15:54 Room Air 07/26/16 15:42 37.1 66 17 123/75 95 Room Air 07/26/16 08:36 96 Room Air 07/26/16 07:50 36.8 70 16 120/82 96 Room Air 07/26/16 07:00 Room Air 07/26/16 06:26 36.8 69 16 121/73 95 Room Air 07/25/16 23:29 Room Air 07/25/16 23:26 37.2 69 16 107/67 95 Room Air Lab Results: Results Past 24 Hours Test 07/26/16 07:28 07/26/16 13:46 Range/Units Hemoglobin 9.4 14.0-18.0 g/dL Hematocrit 27.0 42-52 % Sodium Level 141 136-145 mmol/L Potassium Level 4.1 3.5-5.1 mmol/L Chloride Level 103 98-107 mmol/L Carbon Dioxide Level 27 21-32 mmol/L Anion Gap 11.0 3-11 mmol/L Blood Urea Nitrogen 13 7-18 mg/dl Creatinine 0.95 0.60-1.40 mg/dl Est Creatinine Clear Calc Drug Dose 87.1 ml/min Estimated GFR () 97.0 Estimated GFR (Non- 83.7 BUN/Creatinine Ratio 13.9 10-20 Random Glucose 118 70-99 mg/dl Calcium Level 8.5 8.5-10.1 mg/dl Total Bilirubin 1.1 0.2-1 mg/dl Aspartate Amino Transf (AST/SGOT) 243 15-37 U/L Alanine Aminotransferase (ALT/SGPT) 206 12-78 U/L Alkaline Phosphatase 110 45-117 U/L Total Protein 5.7 6.4-8.2 gm/dl Albumin 2.8 3.4-5.0 gm/dl Globulin 2.9 2.5-4.0 gm/dl Albumin/Globulin Ratio 1.0 0.9-2 Hepatitis B Surface Antigen NEG NEG Hepatitis C Antibody NEG NEG
[2016-07-26] MEDS: DOCUSATE SODIUM/SENNA 50/8.6MG TAB PO SCH (20:59)
[2016-07-26 23:15] VITALS: BP 114/70; PULSE 68; TEMP 37.2; O2SAT 94
[2016-07-27 06:03] VITALS: BP 125/68; PULSE 74; TEMP 37.1; O2SAT 93
[2016-07-27] MEDS: OXYCODONE HCL IR 5 MG TAB (IMMEDIATE RELEASE) PO PRN (06:07)
[2016-07-27] MEDS: KETOROLAC TROMETHAMINE 30 MG/ML VIAL IV PRN (06:08)
[2016-07-27] MEDS ORDERED: OXYC1TAB3 PO (07:21)
[2016-07-27] MEDS ORDERED: TRAM-453 PO (07:21)
--- NOTE | 2016-07-27 07:24 | Discharge Instructions ---
Discharge Instructions Date of Service Jul 27, 2016. Admission Reason for Admission: Lumbar Spinal Stenosis Discharge Discharge Diagnosis / Problem: s/p thoracolumbar decompression/fusion Discharge Goals Goal(s): Decrease discomfort, Improve function, Increase independence Activity Recommendations Activity Limitations: as noted below Lifting Limitations: no more than 5 pounds Exercise/Sports Limitations: none May Resume Sexual Activity: after follow-up appointment Shower/Bathe: no limitations . Instructions / Follow-Up Instructions / Follow-Up please follow up with Family Physician re: abnormal liver profile. Lipitor currently on hold Current Hospital Diet Patient's current hospital diet: Regular Diet Discharge Diet Recommended Diet: Regular Diet Procedures Procedures Performed: L1-L2, L2-L3 Lumbar Laminectomy, Decompression; Pedicle Screw Fixation; Placement of Interbody Device; T10-S1 Posterolateral Fusion; Application of Allograft, Bone Morphogenetic Protein; Iliac Sheldon Fixation; L3-L4 Hardware Removal Pending Studies Studies pending at discharge: no Medical Emergencies . Who to Call and When: Medical Emergencies: If at any time you feel your situation is an emergency, please call 911 immediately. . Non-Emergent Contact Non-Emergency issues call your: Primary Care Provider . "Provider Documentation" section prepared by Zaida Baker. VTE Core Measure Inpt VTE Proph given/why not?: Essence Villaseñor
--- NOTE | 2016-07-27 07:46 | PROGRESS NOTE ---
DATE: 07/27/2016 He is postoperative day 5, thoracolumbar decompression and fusion. He states this morning he is feeling a little bit better than yesterday. Still has some mild "fogginess in his head". Sometimes, he feels clammy. He still has some right lower quadrant abdominal pain. Mild nausea, but no vomiting. He states he ate very little yesterday and really did not get out of bed much. CARINA drain output last shift was 50 mL, total of 230 mL past 24 hours. The last bowel movement was yesterday. His lab panel initially showed yesterday, H\\T\\H of 9.4 and 27.0 respectively. Liver profile was abnormal with elevated direct bilirubin, AST, ALT, alkaline phosphatase, albumin and globulin. He then had a liver ultrasound, which was unremarkable. He also had a KUB yesterday morning, which showed no evidence of bowel dilation. He also notes a modest increase in back pain. He is trying to stick to half a tablet of oxycodone for pain control. PHYSICAL EXAMINATION: GENERAL: He is lying in bed. VITAL SIGNS: Stable. He is afebrile. LOWER EXTREMITIES: Neurovascularly intact. His lumbar dressing is clean, dry and intact. ASSESSMENT: Postop day 5, thoracolumbar decompression and fusion. PLAN: At this time, he has mostly been receiving Toradol and oxycodone for pain control. I do question if this is causing some of his current symptoms. I have ordered tramadol for pain control to see if this can help clear some of his fogginess that he is feeling and belly pain. If not, may consider further testing of his abdomen. Maintain CARINA drain. Deep venous thrombosis prophylaxis is in the form of SCDs and TEDs currently. He will try to increase his ambulation today, as well.
[2016-07-27] MEDS: PANTOprazole SOD 40 MG TAB PO SCH (09:33)
[2016-07-27] MEDS: LOSARTAN POTASSIUM 25 MG TAB PO SCH (09:34)
[2016-07-27] MEDS: ASPIRIN 81 MG ECTAB PO SCH (09:34)
--- NOTE | 2016-07-27 09:50 | DIAGNOSTIC IMAGING REPORT ---
THORACOLUMBAR SPINE 2 VIEWS CLINICAL HISTORY: s/p thoracolumbar fusion; check hardware-lower abd pain COMPARISON STUDY: No previous studies for comparison. FINDINGS: There are postsurgical changes of discectomies and interbody fusions at the L2-3, L3-4, and L4-5 levels. There are pedicle screws present at the T10, T11, T12, L1, L2, L3, L4, and S1 levels. There are adjoining spinal rods present. There are bilateral sacroiliac bolts. There is a posterior drain present. No acute fractures or subluxations are visualized. There is no pathologic bowel dilatation. There are surgical clips in the right upper quadrant consistent with a prior cholecystectomy. IMPRESSION: Postsurgical changes as described above. Electronically signed by: Arnaud Cuevas M.D. 07/27/2016 9:48 AM Dictated Date/Time: 07/27/2016 9:43 AM
[2016-07-27] MEDS: TRAMADOL HCL 50 MG TAB PO PRN ×2 (11:44→15:45)
[2016-07-27 13:44] VITALS: BP 101/62; PULSE 63; TEMP 36.9; O2SAT 94
[2016-07-27 15:24] LABS: BASO % 0.1 %; BASO ABS # 0.01 K/uL (0-0.2); COMPLETE YES; EOS % 0.9 %; HEMATOCRIT 29.5 % (42-52); IG% 0.6 %; LYMPH % 30.8 %; LYMPH ABS # 2.17 K/uL (1.2-3.4); MEAN CELL VOLUME 88.1 fL (80-100); MEAN CORPUSCULAR HEMOGLOBIN 30.4 pg (25-34); MEAN CORPUSCULAR HGB CONC 34.6 g/dl (32-36); MEAN PLATELET VOLUME 9.6 fL (7.4-10.4); MONO % 9.5 %; NEUT % 58.1 %; PLATELET COUNT 210 K/uL (130-400); RED BLOOD COUNT 3.35 M/uL (4.7-6.1); WHITE BLOOD COUNT 7.05 K/uL (4.8-10.8)
--- NOTE | 2016-07-27 15:31 | DIAGNOSTIC IMAGING REPORT ---
CT SCAN OF THE ABDOMEN AND PELVIS WITHOUT CONTRAST CLINICAL HISTORY: ABDOMINAL PAIN COMPARISON STUDY: 01/14/2016 TECHNIQUE: CT scan of the abdomen and pelvis was performed from the lung bases to the proximal femurs. Images are reviewed in the axial, sagittal, and coronal planes. IV contrast was not administered for this examination. CT DOSE: 995.41 mGy.cm FINDINGS: Lower chest: There are moderate coronary artery calcifications present. There are minor basilar atelectatic changes. Liver: The unenhanced liver is normal in size, contour, and attenuation. There is no intrahepatic biliary ductal dilatation. Gallbladder: Surgically absent Spleen: Normal in size and attenuation. Pancreas: Unremarkable. Adrenal glands: There is a 23 mm left adrenal adenoma Kidneys: No renal, ureteral, or bladder calculi are visualized. Bowel: There are no transition zones indicate bowel obstruction. There is no evidence of acute diverticulitis. By history the appendix is absent. Peritoneum: There is no intraperitoneal free air or abdominal ascites. There is a fat-containing umbilical hernia Vasculature: The abdominal aorta is normal in course and caliber. Adenopathy: None. Pelvic viscera: There is air within the bladder, likely iatrogenic. Skeletal structures: There are extensive postsurgical changes within the spine. There are bilateral sacroiliac bolts present. IMPRESSION: 1. No evidence of bowel obstruction. No evidence of free air 2. Surgically absent appendix 3. No evidence of acute diverticulitis 4. No renal, ureteral, or bladder calculi identified 5. 23 mm left adrenal adenoma 6. Air within the bladder, likely iatrogenic Electronically signed by: Arnaud Cuevas M.D. 07/27/2016 3:30 PM Dictated Date/Time: 07/27/2016 3:26 PM
[2016-07-27 15:35] VITALS: BP 95/56; PULSE 63; TEMP 36.6; O2SAT 93
--- NOTE | 2016-07-27 15:41 | Progress Note ---
Internal Med Progress Note Date of Service: Jul 27, 2016. Provider Documentation: SUBJECTIVE: Patient's right abdominal pain has improved. Low back pain/surgical site ++ No associated nausea, vomiting. Had a small BM today. No fever, chills, diarrhea, chest pain, SOB, cough. OBJECTIVE: Vital Signs-as noted below Exam: General-AAOX3, mild distress secondary to lower back pain Lungs-AEBE, no wheezing, rhonchi, rales Heart-s1 and s2 heard, regular rate and rhythm, no murmurs Abdomen-soft bowel sounds present non tender no distension Extremities-no edema no erythema Musculoskeletal s/p back surgery Dressing and drain intact Neuro-Grossly no focal deficits Lab data as noted below. ASSESSMENT & PLAN: ASSESSMENT & PLAN: RIGHT ABDOMINAL PAIN: Unclear etiology Possibly multifactorial: Constipation, post operative status. Has elevated LFTs , but trending down with negative US -Work up- X ray spine- post operative changes, no new changes, US Abd- Negative , KUB- no new changes. CT scan abd/pelvis ordered- pending results ELEVATED LFTS - Trending down -? secondary to anesthesia ? -US = No acute abnormalities, ALP/TB- normal, so no obstructive etiology suspected -Tylenol use cautiously. Held lipitor -Monitor S/P L1-2 LAMINECTOMY, DECOMPRESSION T10-S1 FUSION L3-4 HARDWARE REMOVAL POD # 5 -Management as per ortho HTN stable on losartan and atenolol -Monitor HX DVT/PE Hx of in 2012, provoked after surgery -Had IVF filter in place but has been removed - recommend pharmacologic prophylaxis as soon as possible when ok with surgery HLD hold Lipitor for above reasons until seen by pcp. DVT PROPHYLAXIS as per ortho DISPOSITION as per ortho Vital Signs: Date Time Temp Pulse Resp B/P Pulse Ox O2 Delivery O2 Flow Rate FiO2 07/27/16 13:44 36.9 63 16 101/62 94 Room Air 07/27/16 08:24 Room Air 07/27/16 06:03 37.1 74 16 125/68 93 Room Air 07/27/16 00:00 Room Air 07/26/16 23:15 37.2 68 18 114/70 94 Room Air 07/26/16 15:54 Room Air Lab Results: Results Past 24 Hours Test 07/27/16 06:20 07/27/16 14:56 Range/Units Total Bilirubin 1.2 0.2-1 mg/dl Direct Bilirubin 0.3 0-0.2 mg/dl Aspartate Amino Transf (AST/SGOT) 76 15-37 U/L Alanine Aminotransferase (ALT/SGPT) 142 12-78 U/L Alkaline Phosphatase 109 45-117 U/L Total Protein 6.0 6.4-8.2 gm/dl Albumin 2.8 3.4-5.0 gm/dl White Blood Count 7.05 4.8-10.8 K/uL Red Blood Count 3.35 4.7-6.1 M/uL Hemoglobin 10.2 14.0-18.0 g/dL Hematocrit 29.5 42-52 % Mean Corpuscular Volume 88.1 80-100 fL Mean Corpuscular Hemoglobin 30.4 25-34 pg Mean Corpuscular Hemoglobin Concent 34.6 32-36 g/dl Platelet Count 210 130-400 K/uL Mean Platelet Volume 9.6 7.4-10.4 fL Neutrophils (%) (Auto) 58.1 % Lymphocytes (%) (Auto) 30.8 % Monocytes (%) (Auto) 9.5 % Eosinophils (%) (Auto) 0.9 % Basophils (%) (Auto) 0.1 % Neutrophils # (Auto) 4.10 1.4-6.5 K/uL Lymphocytes # (Auto) 2.17 1.2-3.4 K/uL Monocytes # (Auto) 0.67 0.11-0.59 K/uL Eosinophils # (Auto) 0.06 0-0.5 K/uL Basophils # (Auto) 0.01 0-0.2 K/uL RDW Standard Deviation 43.8 36.4-46.3 fL RDW Coefficient of Variation 13.7 11.5-14.5 % Immature Granulocyte % (Auto) 0.6 % Immature Granulocyte # (Auto) 0.04 0.00-0.02 K/uL
[2016-07-27 15:49] LABS: BUN/CREATININE RATIO 13.4 (10-20); CALCIUM 8.8 mg/dl (8.5-10.1); CREATININE 0.95 mg/dl (0.60-1.40)
[2016-07-27 15:52] LABS: ALB/GLOB RATIO 0.9 (0.9-2)
[2016-07-27] MEDS: DOCUSATE SODIUM/SENNA 50/8.6MG TAB PO SCH (21:03)
[2016-07-27 21:04] VITALS: BP 118/74; PULSE 66
[2016-07-27 23:30] VITALS: BP 105/66; PULSE 63; TEMP 37.2; O2SAT 94
[2016-07-28 06:55] VITALS: BP 119/74; PULSE 67; TEMP 36.8; O2SAT 100
[2016-07-28] MEDS ORDERED: MORP15TA19 PO (07:13)
[2016-07-28] MEDS ORDERED: MoRPHine SULFATE CR 15 MG TAB (MS CONTIN) PO SCH (07:15)
[2016-07-28] MEDS: ASPIRIN 81 MG ECTAB PO SCH (07:39)
[2016-07-28] MEDS: PANTOprazole SOD 40 MG TAB PO SCH (07:39)
[2016-07-28] MEDS: LOSARTAN POTASSIUM 25 MG TAB PO SCH (07:39)
[2016-07-28 07:56] VITALS: BP 115/69; PULSE 65; TEMP 37.4; O2SAT 96
--- NOTE | 2016-07-28 08:36 | PROGRESS NOTE ---
DATE: 07/28/2016 HISTORY OF PRESENT ILLNESS: He is postoperative day #6 thoracolumbar decompression and fusion. This morning, his biggest complaint is back pain. He still has some abdominal pain. Nothing seems to exacerbate or relieve it. He has had bowel movements daily, last being yesterday. He has modest nausea. No vomiting. No radicular leg pain. CARINA drain output last shift was 50 mL. H\T\H yesterday afternoon was 10.2 and 29.5 respectively. White count was 7.05. Liver profile was improving on yesterday's labs. A CT scan of the abdomen was performed yesterday afternoon which showed no evidence of bowel obstruction. No evidence of free air. Surgically absent appendix. No evidence of acute diverticulitis. No renal, ureteral or bladder stones noted. There was a 23 mm left adrenal adenoma. Also, x-rays of the thoracolumbar spine performed yesterday shows surgical fixation T10-S1 including bilateral iliac bolts. No evidence of hardware failure. PHYSICAL EXAMINATION: VITAL SIGNS: He is afebrile. Vital signs are stable. GENERAL: He is lying in bed. No obvious distress. Dressing is clean, dry and intact. LOWER EXTREMITIES: Neurovascularly intact bilaterally. Strength is intact bilateral lower extremities. ASSESSMENT: Postoperative day 6 thoracolumbar decompression and fusion. PLAN: At this point in time, I feel that most of his symptoms are not related to pain control. We will add morphine. We will discontinue his CARINA drain and dressing. Continue ambulation. Continue bowel regimen. Discharge him home later today.
--- NOTE | 2016-07-28 09:00 | DISCHARGE SUMMARY ---
The patient presented to the operating room on 07/22/2016 with a preoperative diagnosis of spinal stenosis. He underwent removal of posterior instrumentation L3-L4, exploration of fusion L3-L4, decompression L1-2, L2-L3, instrumented fusion T10-S1 including bilateral iliac bolts. Interbody cage was also placed at L2-3. [facility]. Postoperative day 1, hematocrit stable at 29.2. Back pain controlled. Leg symptoms improved. Lab values stable. Postoperative days 2 and 3 again doing quite well in physical therapy. Lab values stable. Postoperative day 4 started to have lower abdominal discomfort. He had been having daily bowel movements. No radicular leg pain. He was ambulating several hundred feet in physical therapy. Postoperative day 5 lab work was ordered, spine x-rays were ordered which were within normal limits as well as CT scan of abdomen. Again, no acute findings noted. Ultimately postoperative day 6 most of his pain was in the thoracolumbar spine. Workup had been negative thus far for his belly pain. He remained afebrile and white count normal. The patient was discharged home on postoperative day 6. PAST MEDICAL HISTORY: The patient's medical history is significant for DVT 2012, status post surgery, high cholesterol, hypertension. PAST SURGICAL HISTORY: Significant for rotator cuff repair on the left, appendectomy, cervical spine fusion, cholecystectomy, IVC filter with subsequent removal, multiple back surgeries. ALLERGIES: None listed. MEDICATIONS AT HOME: Include ibuprofen, Prilosec, Lipitor, multivitamin, Cozaar, baby aspirin and atenolol. SOCIAL HISTORY: He is . Denies tobacco use. PLAN: The patient will follow up in our office in 2 weeks to assess his progress and a wound evaluation. Any further questions can be found in his chart for review.
[2016-07-28 10:03] VITALS: O2SAT 96
--- NOTE | 2016-07-28 11:39 | Gastrointestinal Consultation ---
Gastrointestinal Consultation Date of Consultation: Jul 28, 2016 Attending Physician: Dr. Luna Consulting Physician: Dr. Luis Reason for Consultation: Abdominal pain History of Present Illness Patient is a 65 year old male with hx of HTN postop day #6 for thoracolumbar decompression and fusion c/o abdominal pain for which GI is consulted. Notes pain seems to be improving, expecting discharge to home later today. Pt notes had generalized abdominal pain worse yesterday but admits his back pain was worse then too. Pt notes felt good first 3 days after surgery then pain developed. No BMs initially but had 4 good BMs over the last few days with miralax. Describes pain as "belly ache", cannot describe further. Has minimal nausea, no vomiting. Notes he's up to date on colonoscopies, denies GERD or dysphagia. KUB 3/2 was normal. Transaminases elevated briefly and have now improved. Hepatitis panel and liver US were normal, pt is post cholecystectomy, CBD 5mm. Hgb stable post surgery. Noncontrast CT A/P from yesterday was nonrevealing for any acute process. Pt examined laying on side, reports tolerated diet thus far but still doesn't have much appetite. Review of Epic indicates he had recent EGD 05/[address] Luis for unexplained chest pain and EGD was normal. Family History FH: CAD (coronary artery disease) MOTHER FH: prostate cancer FATHER BROTHER Social History Smoking Status: Never Smoker Alcohol Use: none Housing Status: lives with family Occupation Status: retired Allergies Coded Allergies: No Known Allergies (Unverified , 07/22/16) Current Medications Home Meds and Scripts Medications Dose Route/Sig Max Daily Dose Days Date Category Dose Instructions Ms Contin (Morphine Sulfate) 15 Mg Tabcr 15 Mg PO Q12 07/28/16 Rx Ultram (Tramadol Hcl) 50 Mg Tab 50 Mg PO Q4H 07/27/16 Rx PRN PAIN Roxicodone Ir (Oxycodone HCl) 5 Mg Tab 5 Mg PO Q4H PRN 07/27/16 Rx Ibuprofen 200 Mg Cap 400 Mg PO PRN 07/07/16 Reported Prilosec (Omeprazole) 20 Mg Capcr 20 Mg PO QAM 07/07/16 Reported Lipitor (Atorvastatin Calcium) 40 Mg Tab 40 Mg PO QAM 07/07/16 Reported Multivitamin (Multivitamins) Tab 1 Tab PO QAM 07/07/16 Reported Cozaar (Losartan Potassium) 25 Mg Tab 25 Mg PO QAM 06/28/14 Reported Aspirin Ec (Aspirin) 81 Mg Tab 81 Mg PO QAM 05/28/13 Reported Tenormin (Atenolol) 25 Mg Tab 25 Mg PO QAM 01/01/13 Reported Review of Systems Constitutional: No chills, No fever Eyes: No problem reported ENT: No hearing loss Respiratory: No cough, No shortness of breath Cardiac: No chest pain Abdomen: + see HPI Musculoskeletal: + see HPI Male : No dysuria Neuro: No problem reported Psych: No problem reported Heme: No problem reported Skin: No rash Physical Exam Date Time Temp Pulse Resp B/P Pulse Ox O2 Delivery O2 Flow Rate FiO2 07/28/16 10:03 96 Room Air 07/28/16 07:56 37.4 65 18 115/69 96 Room Air 07/28/16 07:35 Room Air 07/28/16 06:55 36.8 67 18 119/74 100 Room Air 07/27/16 23:40 Room Air 07/27/16 23:30 37.2 63 18 105/66 94 Room Air 07/27/16 21:04 66 118/74 07/27/16 15:35 36.6 63 16 95/56 93 Room Air 07/27/16 15:30 Room Air 07/27/16 13:44 36.9 63 16 101/62 94 Room Air General Appearance: WD/WN, no apparent distress Eyes: normal inspection ENT: hearing grossly normal Neck: supple Respiratory/Chest: lungs clear, normal breath sounds, no respiratory distress Cardiovascular: regular rate, rhythm Abdomen: normal bowel sounds, non tender, soft (nondistended) Extremities: no pedal edema Neurologic/Psych: alert, normal mood/affect, oriented x 3 Skin: normal color, warm/dry, no rash Laboratory Results Last 24 Hours Test 07/27/16 14:56 White Blood Count 7.05 K/uL Red Blood Count 3.35 M/uL Hemoglobin 10.2 g/dL Hematocrit 29.5 % Mean Corpuscular Volume 88.1 fL Mean Corpuscular Hemoglobin 30.4 pg Mean Corpuscular Hemoglobin Concent 34.6 g/dl Platelet Count 210 K/uL Mean Platelet Volume 9.6 fL Neutrophils (%) (Auto) 58.1 % Lymphocytes (%) (Auto) 30.8 % Monocytes (%) (Auto) 9.5 % Eosinophils (%) (Auto) 0.9 % Basophils (%) (Auto) 0.1 % Neutrophils # (Auto) 4.10 K/uL Lymphocytes # (Auto) 2.17 K/uL Monocytes # (Auto) 0.67 K/uL Eosinophils # (Auto) 0.06 K/uL Basophils # (Auto) 0.01 K/uL RDW Standard Deviation 43.8 fL RDW Coefficient of Variation 13.7 % Immature Granulocyte % (Auto) 0.6 % Immature Granulocyte # (Auto) 0.04 K/uL Sodium Level 139 mmol/L Potassium Level 4.0 mmol/L Chloride Level 101 mmol/L Carbon Dioxide Level 28 mmol/L Anion Gap 10.0 mmol/L Blood Urea Nitrogen 13 mg/dl Creatinine 0.95 mg/dl Est Creatinine Clear Calc Drug Dose 87.1 ml/min Estimated GFR () 97.0 Estimated GFR (Non- 83.7 BUN/Creatinine Ratio 13.4 Random Glucose 107 mg/dl Calcium Level 8.8 mg/dl Total Bilirubin 1.0 mg/dl Direct Bilirubin 0.2 mg/dl Aspartate Amino Transf (AST/SGOT) 60 U/L Alanine Aminotransferase (ALT/SGPT) 133 U/L Alkaline Phosphatase 112 U/L Total Protein 6.4 gm/dl Albumin 3.0 gm/dl Globulin 3.4 gm/dl Albumin/Globulin Ratio 0.9 Impression Patient is a 65 year old male post op day #6 from lumbar fusion with abdominal pain that seems to be improving. Plan suspect pain was multifactoral - post surgery with radiation of back pain to abdomen, post op constipation which seems to have improved as well. transient elevated of LFTs also improved - ? reactive/medication related CT, US and KUB unrevealing. Pt tolerating diet and moving bowels. GI recommends continuing supportive care - discussed following low reside diet once home until he starts feeling better. Would recommend Miralax BID to help with constipation at home especially with narcotic pain meds on board. Pt expecting discharge later today. FU with GI PRN as outpatient. Please call with questions.
[2016-07-28 11:42] VITALS: BP 115/69; PULSE 65; TEMP 37.4; O2SAT 96
--- NOTE | 2016-07-28 12:21 | Progress Note ---
Internal Med Progress Note Date of Service: Jul 28, 2016. Provider Documentation: SUBJECTIVE: Patient's right abdominal pain has improved. Low back pain/surgical site + No associated nausea, vomiting. Had BMs. No fever, chills, diarrhea, chest pain, SOB, cough. OBJECTIVE: Vital Signs-as noted below Exam: General-AAOX3, mild distress secondary to lower back pain Lungs-AEBE, no wheezing, rhonchi, rales Heart-s1 and s2 heard, regular rate and rhythm, no murmurs Abdomen-soft bowel sounds present non tender no distension Extremities-no edema no erythema Musculoskeletal s/p back surgery Dressing and drain intact Neuro-Grossly no focal deficits Lab data as noted below. ASSESSMENT & PLAN: ASSESSMENT & PLAN: RIGHT ABDOMINAL PAIN: Unclear etiology Possibly multifactorial: Constipation, post operative status. Has elevated LFTs , but trending down with negative US, CT scan -Work up- X ray spine- post operative changes, no new changes, US Abd- Negative , KUB- no new changes. CT scan abd/pelvis - No acute pathology noted. ELEVATED LFTS - Trending down -? secondary to anesthesia -US = No acute abnormalities, ALP/TB- normal, so no obstructive etiology suspected -Tylenol use cautiously. Held lipitor- okay to restart on discharge as LFTs down. 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 DVT PROPHYLAXIS as per ortho DISPOSITION as per ortho- plan is to discharge today Ok to discharge from medical point of view Vital Signs: Date Time Temp Pulse Resp B/P Pulse Ox O2 Delivery O2 Flow Rate FiO2 07/28/16 11:42 37.4 65 18 96 Room Air 07/28/16 10:03 96 Room Air 07/28/16 07:56 37.4 65 18 115/69 96 Room Air 07/28/16 07:35 Room Air 07/28/16 06:55 36.8 67 18 119/74 100 Room Air 07/27/16 23:40 Room Air 07/27/16 23:30 37.2 63 18 105/66 94 Room Air 07/27/16 21:04 66 118/74 07/27/16 15:35 36.6 63 16 95/56 93 Room Air 07/27/16 15:30 Room Air 07/27/16 13:44 36.9 63 16 101/62 94 Room Air Lab Results: Results Past 24 Hours Test 07/27/16 14:56 Range/Units White Blood Count 7.05 4.8-10.8 K/uL Red Blood Count 3.35 4.7-6.1 M/uL Hemoglobin 10.2 14.0-18.0 g/dL Hematocrit 29.5 42-52 % Mean Corpuscular Volume 88.1 80-100 fL Mean Corpuscular Hemoglobin 30.4 25-34 pg Mean Corpuscular Hemoglobin Concent 34.6 32-36 g/dl Platelet Count 210 130-400 K/uL Mean Platelet Volume 9.6 7.4-10.4 fL Neutrophils (%) (Auto) 58.1 % Lymphocytes (%) (Auto) 30.8 % Monocytes (%) (Auto) 9.5 % Eosinophils (%) (Auto) 0.9 % Basophils (%) (Auto) 0.1 % Neutrophils # (Auto) 4.10 1.4-6.5 K/uL Lymphocytes # (Auto) 2.17 1.2-3.4 K/uL Monocytes # (Auto) 0.67 0.11-0.59 K/uL Eosinophils # (Auto) 0.06 0-0.5 K/uL Basophils # (Auto) 0.01 0-0.2 K/uL RDW Standard Deviation 43.8 36.4-46.3 fL RDW Coefficient of Variation 13.7 11.5-14.5 % Immature Granulocyte % (Auto) 0.6 % Immature Granulocyte # (Auto) 0.04 0.00-0.02 K/uL Sodium Level 139 136-145 mmol/L Potassium Level 4.0 3.5-5.1 mmol/L Chloride Level 101 98-107 mmol/L Carbon Dioxide Level 28 21-32 mmol/L Anion Gap 10.0 3-11 mmol/L Blood Urea Nitrogen 13 7-18 mg/dl Creatinine 0.95 0.60-1.40 mg/dl Est Creatinine Clear Calc Drug Dose 87.1 ml/min Estimated GFR () 97.0 Estimated GFR (Non- 83.7 BUN/Creatinine Ratio 13.4 10-20 Random Glucose 107 70-99 mg/dl Calcium Level 8.8 8.5-10.1 mg/dl Total Bilirubin 1.0 0.2-1 mg/dl Direct Bilirubin 0.2 0-0.2 mg/dl Aspartate Amino Transf (AST/SGOT) 60 15-37 U/L Alanine Aminotransferase (ALT/SGPT) 133 12-78 U/L Alkaline Phosphatase 112 45-117 U/L Total Protein 6.4 6.4-8.2 gm/dl Albumin 3.0 3.4-5.0 gm/dl Globulin 3.4 2.5-4.0 gm/dl Albumin/Globulin Ratio 0.9 0.9-2
== END 2016-07-28 12:30 | disposition home or self-care (01) | DRG 458 ==
LOC: ENRESERVTM → ENRESERVDT → C.ACU 09:33 → C.3E 12:00 → UNDOADMIN 15:53
PROVIDERS: ADMIT Orthopaedic Surgery Orthopaedic Surgery of the Spine; ATTEND Orthopaedic Surgery Orthopaedic Surgery of the Spine
PROC: 0SG00AJ Fusion of Lumbar Vertebral Joint with Interbody Fusion Device, Posterior Approach, Anterior Column, Open Approach (ICD-10-PCS; principal; 2016-07-22 11:15)
PROC: 0SG3071 Fusion of Lumbosacral Joint with Autologous Tissue Substitute, Posterior Approach, Posterior Column, Open Approach (ICD-10-PCS; principal; 2016-07-22 11:15)
PROC: 0ST20ZZ Resection of Lumbar Vertebral Disc, Open Approach (ICD-10-PCS; principal; 2016-07-22 11:15)
PROC: 0SG1071 Fusion of 2 or more Lumbar Vertebral Joints with Autologous Tissue Substitute, Posterior Approach, Posterior Column, Open Approach (ICD-10-PCS; principal; 2016-07-22 11:15)
PROC: 0RG7071 Fusion of 2 to 7 Thoracic Vertebral Joints with Autologous Tissue Substitute, Posterior Approach, Posterior Column, Open Approach (ICD-10-PCS; principal; 2016-07-22 11:15)
PROC: 0SG80KZ Fusion of Left Sacroiliac Joint with Nonautologous Tissue Substitute, Open Approach (ICD-10-PCS; principal; 2016-07-22 11:15)
PROC: 0RGA071 Fusion of Thoracolumbar Vertebral Joint with Autologous Tissue Substitute, Posterior Approach, Posterior Column, Open Approach (ICD-10-PCS; principal; 2016-07-22 11:15)
DX: M99.73 Connective tissue and disc stenosis of intervertebral foramina of lumbar region (principal); I10 Essential (primary) hypertension; R74.0 Nonspecific elevation of levels of transaminase and lactic acid dehydrogenase [LDH]; R10.31 Right lower quadrant pain; K59.00 Constipation, unspecified; Z79.82 Long term (current) use of aspirin; Z79.899 Other long term (current) drug therapy; Z86.711 Personal history of pulmonary embolism; Z86.718 Personal history of other venous thrombosis and embolism; Z80.42 Family history of malignant neoplasm of prostate; Z82.49 Family history of ischemic heart disease and other diseases of the circulatory system

== ENCOUNTER → 2017-08-08 | Outpatient (CLI) | payer BC ==
[~2017-08-08] MED LIST changes: -ASPI81TA28 PO; -ATOR-24 PO; -IBUP1CAP9 PO
--- NOTE | 2017-08-08 12:14 | DIAGNOSTIC IMAGING REPORT ---
VIDEO SWALLOW HISTORY: Dysphagia DYSPHAGIA,GLOBUS SENSATION TECHNIQUE: Video fluoroscopic evaluation of swallowing was performed in the AP and lateral projections by the speech pathology staff. The patient is fed nectar-thick and thin liquid barium, a barium coated wafer, and barium pudding. FLUOROSCOPY TIME: 1.6 minutes. COMPARISON STUDY: None. FINDINGS: There is normal hyoid excursion and epiglottic deflection. No significant penetration or aspiration identified. Swallowing function is within normal limits. IMPRESSION: 1. No aspiration identified. 2. Please see the speech pathologist report for detailed findings and recommendations. The above report was generated using voice recognition software. It may contain grammatical, syntax or spelling errors. Electronically signed by: Pato Alas M.D. 08/08/2017 12:12 PM Dictated Date/Time: 08/08/2017 12:12 PM
--- NOTE | 2017-08-08 16:07 | SWALLOWING EVALUATION ---
REFERRING SPEECH PATHOLOGIST: n/a HISTORY: This 66 year-old man was referred for a VFSS at [facility] in order to address c/o persistent globus sensation. The patient has a PMH significant for GERD (on prescription medications but does not have full symptom relief), hypertension, DVT, pulmonary embolism, multiple lumbar spine decompressions and fusions, and c-spine fusion. Currently the patient's diet level is regular. PROCEDURE: The patient was seen in the Radiology Department of [facility] for the VFSS. Cursory examination of the oral cavity revealed adequate dentition. Movement of the articulators was WNL. The patient was seated on a stool and was viewed in both the Anterior-Posterior (A-P) and Lateral planes. Volitional phonation exercises completed in the A-P plane revealed bilateral vocal fold movement and vocal intensity within functional limits. In the lateral plane, the patient was given the following boluses: 1 tsp. thin liquid barium x 2, single swallow thin liquid barium self-presented from a cup, sequential swallows of thin liquid barium self-presented from a cup, 1 tsp. nectar-thick liquid barium, single swallow nectar-thick liquid barium self-presented from a cup, 1 tsp. barium pudding, and 1 club cracker with barium pudding. The patient was then repositioned into the A-P plane and given 1 tsp. barium pudding. RESULTS: Oral Stage: Labial seal, lingual control for oral bolus hold, mastication, lingual movement for bolus transfer, oral clearance and pharyngeal swallow initiation were all WNL/complete. No oral-stage dysphagia. Pharyngeal Stage: Velar elevation, laryngeal elevation, anterior hyoid excursion, epiglottic inversion, laryngeal vestibular closure, pharyngeal stripping wave and pharyngeal contraction were all complete. Distention and duration of PES opening, tongue base retraction, and pharyngeal clearance were complete. No pharyngeal-stage dysphagia. No penetration or aspiration. Esophageal Stage: A pudding bolus cleared the esophagus without impedance. SUMMARY/RECOMMENDATIONS: This patient presents with normal oral-pharyngeal swallowing. The following is recommended: 1. Diet as tolerated 2. Compensatory Strategies: GERD precautions including remaining fully upright 20-30 minutes after meals and keeping the head of the bed elevated AT LEAST 30-degrees at all times. 3. Consideration of completing a Barium Swallow Study and/or esophageal manometry to determine cause of patient complaints. A summary of the results and recommendations was discussed with the patient immediately following the study. He verbalized understanding and is expecting f/u with the referring [employer]. Thank you for referral of this patient. Please contact me at if any additional information is needed.
== END | disposition home or self-care (01) ==
LOC: C.RAD 11:12
PROVIDERS: ATTEND Nurse Practitioner
DX: R13.10 Dysphagia, unspecified (principal); F45.8 Other somatoform disorders

== ENCOUNTER 2018-06-23 04:56 | Inpatient (IN) ==
--- NOTE | 2018-05-31 11:35 | PAT Medication Instructions ---
Medication Instructions Date of Service May 31, 2018 Home Medications aspirin [Aspir-81] 81 mg PO QAM atenolol 25 mg PO QAM atorvastatin 40 mg PO QAM losartan 25 mg PO QAM naproxen sodium [Aleve] 440 mg PO BID NEEDED omeprazole 20 mg PO BID ASK your surgeon for instructions naproxen sodium [Aleve] 440 mg PO BID NEEDED ASK your prescriber and surgeon aspirin [Aspir-81] 81 mg PO QAM DO NOT take the morning of surgery losartan 25 mg PO QAM Take morning of surgery With a small sip of water, OTHERWISE NOTHING TO EAT OR DRINK AFTER MIDNIGHT: atenolol 25 mg PO QAM atorvastatin 40 mg PO QAM omeprazole 20 mg PO BID Take evening before surgery omeprazole 20 mg PO BID Other Notes If you have any questions please call us at [phone] or [phone] or [phone] or [phone]
--- NOTE | 2018-05-31 14:04 | Anesthesiology Consultation ---
Date of Service May 31, 2018 Assessment & Plan (1) Encounter for pre-operative examination: Chart Review Chart Review: Acceptable Risk for Surgery and Patient seen in Pre Admission Testing Consults Requested none Teaching & Discussion Pre-Anesthesia Teaching/Discussion Notes: Instructed NPO after midnight before surgery, except medications with 15 cc of water. Medication instructions provided according to the PAT guidelines. History Surgery Operation Date: 06/23/18 08:50 Proposed Procedures p Right Anterior Total Hip Arthroplasty - Vimal May DO Height/Weight Height: 5 ft 7 in Weight: 101.3 kg Allergies Allergy/AdvReac Type Severity Reaction Status Date / Time No Known Allergies Allergy Verified 05/24/18 11:47 Medications Home Medications Medication Instructions Recorded Confirmed Last Taken aspirin [Aspir-81] 81 mg PO QAM 05/24/18 05/24/18 Unknown atenolol 25 mg PO QAM 05/24/18 05/24/18 Unknown atorvastatin 40 mg PO QAM 05/24/18 05/24/18 Unknown losartan 25 mg PO QAM 05/24/18 05/24/18 Unknown naproxen sodium [Aleve] 440 mg PO BID PRN 05/24/18 05/24/18 Unknown omeprazole 20 mg PO BID 05/24/18 05/24/18 Unknown Past Medical History Medical History Chronic back pain GERD (gastroesophageal reflux disease) Hyperlipidemia Hypertension Osteoarthritis Pulmonary embolism HX POST OP RCR MORE THAN 5 YRS AGO-HAS NOT HAPPENED SINCE-"HAD A BLOOD WORKUP IN THE PAST-BLOOD CLOTTING PROBLEM RULED OUT" PER PT Past Family History Family History Father Family hx of colon cancer Family history of diabetes mellitus Past Surgical History Surgical History Fusion of spine X 3-LUMBAR H/O foot surgery RIGHT H/O hand surgery LEFT THUMB History of ankle surgery RIGHT History of appendectomy History of cardiac cath X 2-NO STENTS 4 YRS AGO AND 5 YRS AGO [facility] History of cholecystectomy History of discectomy CERVICAL FUSION 20 YRS AGO-GOOD ROM PER PT History of repair of rotator cuff RIGHT X2/LEFT X 2 History of tonsillectomy Pilonidal cyst REMOVAL S/P IVC filter AND REMOVAL Undescended testicle, unilateral SURGERY TO PUT IN PLACE Past Anesthesia History No Hx of Anesthesia Complications and No Family Hx of Anesthesia Complications History of PONV No Motion Sickness Screening History of Motion Sickness: No Social History Smoking Status: Former smoker tobacco type: cigarettes Smoking cigarettes per day: SMOKED ~1/4PPD X 10 YEARS Do You Dip or Chew Tobacco: No Smoking End Date: QUIT 25 YRS AGO Hx Alcohol Use: No Hx Substance Use: No Exercise / Class Metabolic Activity II 4-5 Yardwork/Stairs/Walk up hill (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 DENIES CP OR SOB. ) Review of Systems Patient denies chest pain, shortness of breath, dyspnea on exertion, reflux, cough, wheezing, palpitations. +joint pain (right hip, right ankle, shoulder, bilateral wrists) Physical Exam Vital Signs BP: 114/70 P: 62 R: 18 T: 97.9 SPO2: 96% on RA Constitutional + obese ENMT Thyromental Distance: < 3.5 Finger Breadths (2.5) Mallampati Class: III Neck normal visual inspection and + short neck; neck extension not limited Respiratory normal respiratory effort Auscultation: lungs clear to auscultation bilaterally Cardiovascular Rate/Rhythm: regular rate and regular rhythm Heart Sounds: no murmur Vessels: no carotid bruit Neurologic moves all extremities Psychiatric Orientation: alert and oriented x 3 Testing Electrocardiogram Date: 11/24/17 Findings: + SB @ (57) When compared with ECG of 11/16/16, PACs are no longer present. Chest X-Ray Date: 08/14/17 Findings: + NAD Stress Test Date: 07/08/14 Type: nuclear Resting EF: 60% CONCLUSION: Based upon EKG criteria, this test is negative. Based upon the nuclear imaging findings, there is inferior wall ischemia. Cardiac Catheterization Date: 07/12/14 Findings: + normal Intervention: + none Mild nonobstructive disease with 40% mid RCA stenosis 40% PDA stenosis and a 25 % ostial circumflex stenosis with mild luminal irregularities in the LAD system for which medical management had been recommended. Laboratory Results 05/31/18 13:54 05/31/18 13:54 Blood Type B Negative 05/31/18 13:54 Antibody Screen NEGATIVE 05/31/18 13:54 PT 11.3 Seconds (9.0-12.0) 05/31/18 13:54 INR 1.1 (0.9-1.1) 05/31/18 13:54 APTT 26.5 Seconds (21.0-31.0) 05/31/18 13:54 Dr. May's office notified of elevated WBC.
[2018-05-31 15:46] LABS: Basophils # (auto) 0.01 K/uL (0-0.2); Basophils % (auto) 0.1 %; Hematocrit (blood only) 44.5 % (42-52); Hemoglobin 15.5 g/dL (14.0-18.0); Immature Granulocytes # (auto) 0.03 K/uL (0.00-0.02); Immature Granulocytes % (auto) 0.2 %; Lymphocytes # (auto) 3.38 K/uL (1.2-3.4); Lymphocytes % (auto) 25.8 %; Mean Corpuscular Hgb Conc 34.8 g/dL (32-36); Mean Corpuscular Volume 87.8 fL (80-100); Mean Platelet Volume 10.5 fL (7.4-10.4); Monocytes # (auto) 1.16 K/uL (0.11-0.59); Monocytes % (auto) 8.9 %; Neutrophils # (auto) 8.52 K/uL (1.4-6.5); Platelet Count 217 K/uL (130-400); Red Blood Count 5.07 M/uL (4.7-6.1)
[2018-05-31 15:55] LABS: BUN Creatinine Ratio 16.1 (10-20); Calcium 9.9 mg/dl (8.5-10.1); Creatinine Clr Calc Pharmacy 79.7 ml/min; Est GFR (African American) 87.7; Est GFR (Non-African American) 75.7; Potassium 4.3 mmol/L (3.5-5.1)
[2018-05-31 15:57] LABS: INR 1.1 (0.9-1.1); Partial Thromboplastin Time 26.5 Seconds (21.0-31.0); Prothrombin Time 11.3 Seconds (9.0-12.0)
--- NOTE | 2018-06-22 06:35 | History & Physical Report ---
Date of Service June 22, 2018 Assessment & Plan (1) Osteoarthritis of right hip: We will proceed with a right anterior total hip arthroplasty. Postoperatively he will be started on aspirin for DVT prophylaxis. He will be kept in the hospital for postop medical management. He plans to use energy physical therapy upon discharge. Present on Admission?: Yes History of Present Illness Chief Complaint: Primary osteoarthritis of the right hip Primary Care Provider: Shane Da Silva MD Asif is a pleasant 67-year-old male who is been dealing with chronic increasing right hip and groin pain. X-rays and clinical examination have been diagnostic for primary osteoarthritis of the right hip. I did give him an injection in the right hip joint and it took care of all of his pain but unfortunately did not last long. He does have a history of extensive back surgery and lumbar fusion. Unfortunately he still has a lot of right hip and groin pain. After failing extensive conservative treatment, he is elected proceed with a right total hip arthroplasty. Allergies Allergy/AdvReac Type Severity Reaction Status Date / Time No Known Allergies Allergy Verified 05/24/18 11:47 Home Medications Home Medications Medication Instructions Recorded Confirmed Type aspirin [Aspir-81] 81 mg PO QAM 05/24/18 05/24/18 History atenolol 25 mg PO QAM 05/24/18 05/24/18 History atorvastatin 40 mg PO QAM 05/24/18 05/24/18 History losartan 25 mg PO QAM 05/24/18 05/24/18 History naproxen sodium [Aleve] 440 mg PO BID PRN 05/24/18 05/24/18 History omeprazole 20 mg PO BID 05/24/18 05/24/18 History Past Med/Surg History Medical History Chronic back pain GERD (gastroesophageal reflux disease) Hyperlipidemia Hypertension Osteoarthritis Pulmonary embolism HX POST OP RCR MORE THAN 5 YRS AGO-HAS NOT HAPPENED SINCE-"HAD A BLOOD WORKUP IN THE PAST-BLOOD CLOTTING PROBLEM RULED OUT" PER PT Surgical History Fusion of spine X 3-LUMBAR H/O foot surgery RIGHT H/O hand surgery LEFT THUMB History of ankle surgery RIGHT History of appendectomy History of cardiac cath X 2-NO STENTS 4 YRS AGO [address] [facility] History of cholecystectomy History of discectomy CERVICAL FUSION 20 YRS AGO-GOOD ROM PER PT History of repair of rotator cuff RIGHT X2/LEFT X 2 History of tonsillectomy Pilonidal cyst REMOVAL S/P IVC filter AND REMOVAL Undescended testicle, unilateral SURGERY TO PUT IN PLACE Family History Father Family hx of colon cancer Family history of diabetes mellitus Social History Current Living Situation: Spouse Other Information That Helps Us Care for You: No Feels Safe at Home: Yes Safety Concerns: Feels Safe At This Time Smoking Status: Former smoker Tobacco Type: cigarettes Cigarettes per Day: SMOKED ~1/4PPD X 10 YEARS Do You Dip or Chew Tobacco: No Smoking End Date: QUIT 25 YRS AGO Hx Alcohol Use: No Hx Substance Use: No Beliefs That Will Affect Care: None Preferred Language: British Communication Ability: Effective Chemistry Lecturer Required: No Review of Systems All systems reviewed & are unremarkable except as noted in HPI & below Physical Exam 2 Constitutional: WD/WN, vitals as above Eyes: PERRL, conjunctivae normal, anicteric sclerae ENMT: external ear and nose normal, oropharynx normal Neck: trachea midline, no thyromegaly Respiratory: normal respiratory effort Cardiovascular: RRR, no murmur, no edema Gastrointestinal (Abdomen): normal bowel sounds, soft, nontender, no hepatosplenomegaly Musculoskeletal: Physical examination of the right hip reveals decreased range of motion with flexion, internal and external rotation. There is significant groin pain with forced internal rotation of the hip his leg lengths are essentially equal. Psychiatric: A+Ox3, euthymic affect Results & Data Diagnostic Findings Radiographs of the right hip and pelvis demonstrate advanced osteoarthritis with joint space narrowing osteophyte formation and [id number] articulation.
[2018-06-23] MEDS: LACTATED RINGER'S 1,000 ML IV SCH ×2 (05:39→06:27)
[2018-06-23] MEDS ORDERED: FAMOTIDINE 20 MG TAB PO SCH (06:00)
[2018-06-23] MEDS ORDERED: LR 500ML BOLUS, THEN 15ML/HR IV SCH (06:00)
[2018-06-23] MEDS ORDERED: GABAPENTIN 300 MG x 2 PO SCH (06:00)
[2018-06-23] MEDS ORDERED: ACETAMINOPHEN 500 MG TAB PO SCH (06:00)
[2018-06-23] MEDS ORDERED: ROPIVACAINE 0.5% HCL/PF 150 MG, BUPIVACAINE 0.5% MPF 30 ML, EPINEPHrine 30MG/30ML (OR U... INFIL SCH (06:00)
[2018-06-23] MEDS ORDERED: LR 15ML/HR IV SCH (06:00)
[2018-06-23] MEDS ORDERED: CEFAZOLIN 2000MG 2,000 MG/15 ML SYR IV SCH (06:00)
[2018-06-23] MEDS ORDERED: TRANEXAMIC ACID 1,000 MG **IV Pre-op IV SCH (06:00)
[2018-06-23] MEDS ORDERED: BUPIVACAINE 0.5 % 5 MG/1 ML PF 10ML VIAL ONE (06:20)
[2018-06-23] MEDS ORDERED: TRANEXAMIC ACID 1,000 MG **IV Intra-op IV SCH (06:30)
[2018-06-23] MEDS ORDERED: POVIDONE-IODINE OP SOLN 30 ML BTL ONE (06:33)
[2018-06-23] MEDS ORDERED: MIDAZOLAM HCL 1 MG/ML 2ML VIAL ONE (06:47)
[2018-06-23] MEDS ORDERED: fentaNYL citrate 100 MCG/2 ML VIAL ONE ×2 (06:47→08:10)
--- NOTE | 2018-06-23 06:55 | History & Physical Bridge Note ---
Date of Service June 23, 2018 History & Physical Bridge Note I have examined the patient, reviewed the History & Physical and in the interval since the performance of the History & Physical I have noted the following changes of clinical significance: no changes noted
[2018-06-23] MEDS ORDERED: ePHEDrine sulfate 50 MG/ML AMP IV PRN (07:40)
[2018-06-23] MEDS ORDERED: ATROPINE SULFATE 0.1 MG/ML 10ML SYR IV PRN (07:40)
[2018-06-23] MEDS ORDERED: PROPOFOL IV EMULSION 10 MG/ML 20 ML VIAL IV ONE ×2 (08:10→08:59)
[2018-06-23] MEDS: ORTHO JOINT ANESTHETIC ONE ×2 (08:49→11:57)
--- NOTE | 2018-06-23 09:03 | Operative Report ---
Post Operative Report Pre & Post Diagnosis Operation Date: 06/23/18 07:00 Pre-Op Diagnosis: Right Hip Degenerative Joint Disease Post-Op Diagnosis: Right Hip Degenerative Joint Disease Procedure Operation Date: 06/23/18 07:00 Actual Procedures p Right Anterior Total Hip Arthroplasty(Right) - Vimal May DO Surgeon Vimal May DO Flake Or Shred Roll Operator Vimal Arvizu PAC Estimated Blood Loss 300 Findings Consistent with Post-Op Diagnosis Specimens None Complications none Disposition Disposition: Recovery Room Indications Asif is a pleasant 67-year-old male who is been complaining of chronic increasing right hip and groin pain. X-rays and clinical examination were diagnostic for mild to moderate arthritis of the right hip. I gave him an intra -articular hip injection and took care of 100% of his pain. After failing extensive conservative treatment, he elected to proceed with a right anterior total hip arthroplasty. Description of Procedure Implants used Biomet Taperloc total hip arthroplasty system with a size 14 standard offset Taperloc stem, a 54 mm G7 cup with a 25mm screw, an E1 polyethylene liner, a 40 mm ceramic head with a 0 neck. Patient arrived at the hospital for the above procedure. They were seen in the preoperative holding area and the operative extremity was identified and signed. They were given a spinal anesthetic. They were given a preoperative antibiotic and TXA. They were taken back To the operating room and laid on the table in the supine position. The leg was brought out through a Puristst leg positioner. The hip was then prepped and draped in sterile fashion. A timeout was done and the patient in upper extremities properly identified. An anterior approach was used. Dissection was taken down through the fascia and the tensor muscle belly was retracted laterally and the rectus was retracted medially. The circumflex vessels were identified and ligated. The capsule was then incised and tagged for later repair. The femoral neck was then cut and the femoral head was removed. The acetabulum was exposed. Time was spent doing a complete circumferential labral release. Sequential reaming of the acetabulum up to a size 53 reamer was done. Final reamings were done under fluoroscopy to ensure appropriate version. A Biomet 54 mm G7 cup was then impacted into place. A single 25 mm screw was placed. The E1 polyethylene liner was then snapped into place. Surrounding soft tissues were then injected with 100 cc of an orthopedic pain control cocktail. The proximal femur was then exposed. Sequential broaching up to a size 14 broach was done. Off that broach a size 40 head with a 0 neck was trialed. The hip was reduced and fluoroscopic images showed anatomic alignment of the implants in acceptable length. The broach was removed. The final size 14 standard offset Taperloc stem was then impacted into place. A ceramic 40 mm head with a 0 neck was then impacted into place in the hip was reduced. Final fluoroscopic images showed anatomic reduction of the hip. The capsule was then closed with #1 Vicryl suture. A dilute betadyne lavage was then done for 3 minutes. The joint was then irrigated with normal saline solution. The fascia was closed with #1 PDS suture. Skin was closed with 2-0 Vicryl, michela, and a Maria E VAC dressing. The patient was then transferred to a hospital bed and taken to the post anesthesia care unit in stable condition. They tolerated the procedure well. I attest to the content of the Intraoperative Record and any orders documented therein. Any exceptions are noted below.
--- NOTE | 2018-06-23 09:48 | XRay Report ---
XR hip 1V RT w pelvis CLINICAL HISTORY: Postop examination COMPARISON: May 31, 2018 DISCUSSION: There are postsurgical changes of a total right hip arthroplasty. There is no dislocation . There are no acute fractures. There are overlying skin michela. There are postsurgical changes pres ent within the lumbar spine. Bilateral sacroiliac bolts are visualized. IMPRESSION: Postsurgical changes of a total right hip arthroplasty. No evidence of dislocation. Electronically signed by: Arnaud Cuevas M.D. 06/23/2018 9:47 AM
[2018-06-23] MEDS ORDERED: NALOXONE HCL 0.4 MG/1 ML VIAL/CARP IV PRN (10:42)
[2018-06-23] MEDS ORDERED: ONDANSETRON INJ 2 MG/ML 2 ML VIAL IV PRN (10:42)
[2018-06-23] MEDS ORDERED: HYDROmorphone INJ 0.5 MG/0.5 ML SYR IV PRN (10:42)
[2018-06-23] MEDS ORDERED: OXYCODONE HCL IR 5 MG TAB (IMMEDIATE RELEASE) PO PRN (10:42)
[2018-06-23] MEDS ORDERED: METOCLOPRAMIDE HCL INJ 5 MG/ML 2 ML VIAL IV PRN (10:42)
[2018-06-23] MEDS ORDERED: MAGNESIUM HYDROXIDE SUSP 30 ML UDC PO PRN (10:42)
[2018-06-23] MEDS ORDERED: BISACODYL 10 MG SUPP PR PRN (10:42)
--- NOTE | 2018-06-23 10:48 | Anesthesiology Progress Note ---
Date of Service June 23, 2018 Anesthesia Post Procedure Vital Signs Vital Signs: Temp Pulse Pulse Resp BP BP Pulse Ox 06/23/18 09:46 55 L 12 139/75 95 06/23/18 09:45 61 14 97 06/23/18 09:41 58 L 15 118/77 97 06/23/18 09:40 59 L 19 98 06/23/18 09:36 64 14 146/80 H 95 06/23/18 09:35 61 13 98 06/23/18 09:31 60 10 L 125/86 97 06/23/18 09:30 58 L 12 96 06/23/18 09:26 63 14 128/77 98 06/23/18 09:25 60 16 98 06/23/18 09:21 37.1 C 74 71 12 124/76 124/76 100 06/23/18 05:44 37.2 C 57 L 18 131/80 94 Pain Intensity Right Shoulder: Pain Intensity: 4 Notes Mental Status: alert / awake / arousable and participated in evaluation Patient Amnestic to Procedure: Yes Nausea / Vomiting: adequately controlled Pain: adequately controlled Airway Patency, RR, SpO2: stable & adequate BP & HR: stable & adequate Hydration State: stable & adequate Anesthetic Complications: no major complications apparent
--- NOTE | 2018-06-23 10:51 | Fluoroscopy Report ---
FL hip RT 1V CLINICAL HISTORY: RT ANTERIOR HIP COMPARISON STUDY: Pelvis and right hip 05/31/2018. FLUOROSCOPY TIME: 42 seconds. FINDINGS: 2 fluoroscopic spot images of the right hip demonstrated right total hip arthroplasty. The hardware is intact. No fracture or dislocation. IMPRESSION: Fluoroscopy provided for a right total hip arthroplasty. Electronically signed by: London Sanches M.D. 06/23/2018 10:50 AM
[2018-06-23] MEDS: KETOROLAC TROMETHAMINE 15 MG/ML VIAL IV SCH ×3 (12:25→23:52)
[2018-06-23] MEDS: SODIUM CHLORIDE 0.9% 1000ML 1,000 ML IV SCH ×2 (12:25→21:54)
[2018-06-23] MEDS: ACETAMINOPHEN 500 MG TAB PO SCH ×2 (13:47→21:52)
[2018-06-23] MEDS: CEFAZOLIN 2000MG 2,000 MG/15 ML SYR IV SCH ×2 (15:08→23:52)
[2018-06-23] MEDS: PANTOprazole 40 MG TAB PO SCH (21:51)
[2018-06-23] MEDS: ASPIRIN 81 MG ECTAB PO SCH (21:52)
[2018-06-23] MEDS: SENNA 8.6 MG TAB PO SCH (21:53)
[2018-06-23] MEDS: DOCUSATE SODIUM 100 MG CAP PO SCH (21:53)
[2018-06-24] MEDS: KETOROLAC TROMETHAMINE 15 MG/ML VIAL IV SCH ×4 (05:39→23:51)
[2018-06-24 05:57] LABS: Basophils # (auto) 0.02 K/uL (0-0.2); Basophils % (auto) 0.2 %; Eosinophils # (auto) 0.07 K/uL (0-0.5); Eosinophils % (auto) 0.6 %; Hematocrit (blood only) 37.5 % (42-52); Hemoglobin 12.7 g/dL (14.0-18.0); Immature Granulocytes # (auto) 0.03 K/uL (0.00-0.02); Immature Granulocytes % (auto) 0.3 %; Lymphocytes # (auto) 2.38 K/uL (1.2-3.4); Lymphocytes % (auto) 21.1 %; Mean Corpuscular Hgb Conc 33.9 g/dL (32-36); Mean Corpuscular Volume 88.9 fL (80-100); Mean Platelet Volume 9.9 fL (7.4-10.4); Monocytes # (auto) 1.08 K/uL (0.11-0.59); Monocytes % (auto) 9.6 %; Neutrophils # (auto) 7.69 K/uL (1.4-6.5); Neutrophils % (auto) 68.2 %; Platelet Count 136 K/uL (130-400); RDW Standard Deviation 42.3 fL (36.4-46.3); Red Blood Count 4.22 M/uL (4.7-6.1); White Blood Count 11.27 K/uL (4.8-10.8)
[2018-06-24 06:21] LABS: BUN Creatinine Ratio 12.9 (10-20); Calcium 8.2 mg/dl (8.5-10.1); Creatinine Clr Calc Pharmacy 94.1 ml/min; Est GFR (Non-African American) 89.7; Potassium 3.6 mmol/L (3.5-5.1)
[2018-06-24] MEDS: ACETAMINOPHEN 500 MG TAB PO SCH ×3 (06:21→21:34)
--- NOTE | 2018-06-24 06:52 | Orthopedic Progress Note ---
Date of Service June 24, 2018 Assessment & Plan (1) Osteoarthritis of right hip: Overall he is doing fairly well. His little bit of back pain but his hips feeling okay. He will be seen by physical therapy today for ambulation. He is on aspirin for DVT prophylaxis. He is on oxycodone for pain control. We plan to discharge him to home tomorrow with physical therapy. Present on Admission?: Yes Yury Gold was seen and examined at bedside this morning. Overall he is doing fairly well. He is little bit of back pain but not much hip pain. He is been up and ambulating to the bathroom. He has no complaints. Physical Exam 2 Vital Signs (Past 24 Hours): Last Vital Signs Temp 37.1 C 06/24/18 03:30 Pulse 96 H 06/24/18 03:30 Resp 18 06/24/18 03:30 BP 146/76 H 06/24/18 03:30 Pulse Ox 95 06/24/18 03:30 Musculoskeletal: On physical examination of the right hip, the Maria E VAC dressing is to suction. His leg lengths are equal. He is active dorsiflexion and plantarflexion of his right ankle. Sensation is intact throughout. Results & Data Laboratory Results H & H 05/31/18 06/24/18 Range/Units 13:54 05:16 Hgb 15.5 12.7 L (14.0-18.0) g/dL Hct 44.5 37.5 L (42-52) % Coagulation 05/31/18 Range/Units 13:54 INR 1.1 (0.9-1.1) Diagnostic Findings Postoperative x-rays of the right hip show the prosthesis to be in anatomic alignment without any evidence of fracture, dislocation, or loosening.
[2018-06-24] MEDS: DOCUSATE SODIUM 100 MG CAP PO SCH ×2 (08:42→21:34)
[2018-06-24] MEDS: MULTIVITAMIN TAB PO SCH (08:42)
[2018-06-24] MEDS: PANTOprazole 40 MG TAB PO SCH ×2 (08:42→21:34)
[2018-06-24] MEDS: ATENOLOL 25 MG TABLET PO SCH (08:42)
[2018-06-24] MEDS: LOSARTAN POTASSIUM 25 MG TAB PO SCH (08:42)
[2018-06-24] MEDS: ASPIRIN 81 MG ECTAB PO SCH ×2 (08:43→21:34)
[2018-06-24] MEDS: ATORVASTATIN 40 MG TAB PO SCH (08:43)
[2018-06-24] MEDS: SENNA 8.6 MG TAB PO SCH (21:34)
[2018-06-25] MEDS: ACETAMINOPHEN 500 MG TAB PO SCH (05:54)
[2018-06-25] MEDS: KETOROLAC TROMETHAMINE 15 MG/ML VIAL IV SCH (05:54)
[2018-06-25] MEDS: ATENOLOL 25 MG TABLET PO SCH (08:20)
[2018-06-25] MEDS: ATORVASTATIN 40 MG TAB PO SCH (08:20)
[2018-06-25] MEDS: MULTIVITAMIN TAB PO SCH (08:20)
[2018-06-25] MEDS: PANTOprazole 40 MG TAB PO SCH (08:20)
[2018-06-25] MEDS: LOSARTAN POTASSIUM 25 MG TAB PO SCH (08:20)
[2018-06-25] MEDS: DOCUSATE SODIUM 100 MG CAP PO SCH (08:20)
[2018-06-25] MEDS: ASPIRIN 81 MG ECTAB PO SCH (08:21)
--- NOTE | 2018-06-25 09:10 | Orthopedic Progress Note ---
Date of Service June 25, 2018 Assessment & Plan (1) Osteoarthritis of right hip: Overall he is doing very well. He is on aspirin for DVT prophylaxis and oxycodone for pain control. He will be seen by physical therapy again this morning. He can be discharged home later today with [facility]. Present on Admission?: Yes Yury Gold was seen and examined at bedside this morning. Overall he is doing very well. He is not having much pain in the right hip. His back pain is already much better. He has been ambulating the hallways. He has no complaints. Physical Exam 2 Vital Signs (Past 24 Hours): Last Vital Signs Temp 37.4 C 06/25/18 06:36 Pulse 79 06/25/18 06:36 Resp 16 06/25/18 06:36 BP 120/73 06/25/18 06:36 Pulse Ox 93 06/25/18 06:36 Musculoskeletal: On examination of the right hip, the Maria E VAC dressing is to suction. His leg lengths are equal. He has active dorsiflexion and plantarflexion of his right ankle. Sensation is intact.
--- NOTE | 2018-06-25 09:11 | Discharge Summary ---
Date of Service June 25, 2018 Admission HPI Per Admitting Provider Asif is a pleasant 67-year-old male who is been dealing with chronic increasing right hip and groin pain. X-rays and clinical examination have been diagnostic for primary osteoarthritis of the right hip. I did give him an injection in the right hip joint and it took care of all of his pain but unfortunately did not last long. He does have a history of extensive back surgery and lumbar fusion. Unfortunately he still has a lot of right hip and groin pain. After failing extensive conservative treatment, he is elected proceed with a right total hip arthroplasty. Specialty Data Orthopedic H & H 05/31/18 06/24/18 Range/Units 13:54 05:16 Hgb 15.5 12.7 L (14.0-18.0) g/dL Hct 44.5 37.5 L (42-52) % Coagulation 05/31/18 Range/Units 13:54 INR 1.1 (0.9-1.1) Discharge Data Consultations 06/24/18 08:00 Consult Case Management - Discharge Planning Routine Procedures Performed Operation Date: 06/23/18 07:00 Actual Procedures p Right Anterior Total Hip Arthroplasty(Right) - Vimal May DO Hospital Course (1) Osteoarthritis of right hip: On June 23, 2018 Asif arrived at [facility] and underwent a right total hip arthroplasty without complication. He had a spinal anesthetic. Postoperatively he was started on aspirin for DVT prophylaxis and discharged to general orthopedic floors. His hospital course was uneventful. On postop day #1 his H&H was stable and his pain is well controlled. He was able to ambulate well with physical therapy. On postop day #2 he continued to do well. He was then discharged home with [facility]. He will follow-up with orthopedics in 2 weeks. Discharge Instructions Home Medications Medication Instructions Recorded Confirmed aspirin [Aspir-81] 81 mg PO QAM 05/24/18 06/23/18 atenolol 25 mg PO QAM 05/24/18 06/23/18 atorvastatin 40 mg PO QAM 05/24/18 06/23/18 losartan 25 mg PO QAM 05/24/18 06/23/18 naproxen sodium [Aleve] 440 mg PO BID PRN 05/24/18 06/23/18 omeprazole 20 mg PO BID 05/24/18 06/23/18 Previous Rx's Medication Instructions Recorded aspirin [Ecotrin Low Strength] 81 mg PO BID #84 tab 06/24/18 oxycodone 5 - 10 mg PO Q4H PRN #40 tab 06/24/18
== END 2018-06-25 10:21 | disposition home or self-care (01) | DRG 470 ==
LOC: ASU 04:56 → 3E 09:06

== ENCOUNTER 2025-05-07 14:10 | Inpatient (IN) ==
--- NOTE | 2025-05-07 14:26 | Emergency Department Note ---
History of Present Illness General Chief Complaint: Chest Pain Stated Complaint: CHEST PAIN Time Seen by Provider: 05/07/25 14:12 Source: patient and family History of Present Illness Provider Complaint: chest pain Time: 10:00 Duration: intermittent Onset: during rest Pain Location: substernal Pain Radiation: none Severity: moderate Quality: + tightness, + aching and + dull Relieved By: + nothing Exacerbated By: + nothing Context: + history of DVT/PE; no recent travel Associated symptoms: + dyspnea and + cough; no nausea, no palpitations, no fever or no leg swelling reports that the patient's oxygen saturations have been low. Home Medications Medication Instructions Recorded Confirmed Type atenolol 25 mg tablet 25 mg PO QAM 05/24/18 08/10/24 History atorvastatin 40 mg tablet 40 mg PO QAM 05/24/18 08/10/24 History losartan 25 mg tablet 25 mg PO QAM 05/24/18 08/10/24 History naproxen sodium 220 mg capsule 440 mg PO BID PRN Pain 05/24/18 08/10/24 History (Aleve) aspirin 81 mg tablet,delayed 81 mg PO QAM 02/26/20 08/10/24 History release (Ecotrin Low Strength) amoxicillin 500 mg tablet 2,000 mg PO DIRECTED PRN 1 HR 09/17/23 08/10/24 History PRIOR TO DENTAL APPOINTMENTS cholecalciferol (vitamin D3) 25 25 mcg PO DAILY 09/17/23 08/10/24 History mcg (1,000 unit) capsule (Vitamin D3) denosumab 60 mg/mL subcutaneous 60 mg subcut .[id number] 09/17/23 08/10/24 History syringe (Prolia) donepezil 10 mg tablet 10 mg PO QAM 09/17/23 08/10/24 History isosorbide dinitrate 5 mg tablet mg PO ONCE 08/10/24 08/10/24 History riluzole 50 mg tablet mg PO BID 08/10/24 08/10/24 History tamsulosin 0.4 mg capsule (Flomax) 0.4 mg PO DAILY #90 caps 08/10/24 08/10/24 Rx Allergies Allergy/AdvReac Type Severity Reaction Status Date / Time pollen extracts Allergy Intermediate Sneezing Verified 08/10/24 08:30 Past Med/Surg History Problem List (Updated 05/07/25 @ 16:40 by Parker Godfrey MD) Hypoxia (Acute) Cervical radiculopathy at C8 Idiopathic polyneuropathy Lower urinary tract symptoms (LUTS) (Chronic) Left testicular pain (Chronic) Thigh pain Synovitis of elbow Tear meniscus knee Osteoarthritis of right hip Dyslipidemia (Chronic) HTN (hypertension) (Chronic) Medical History (Updated 05/07/25 @ 16:40 by Parker Godfrey MD) ALS (amyotrophic lateral sclerosis) Dementia DVT (deep venous thrombosis) 2013, post-op Idiopathic polyneuropathy Lower urinary tract symptoms (LUTS) Mild cognitive impairment Osteoporosis CAD (coronary artery disease) Mild, non-obstructive per 2014 cardiac cath (40% mid RCA stenosis, 40% PDA stenosis and 25% ostial Cx stenosis with mild luminal irregularities in LAD system)-Medical management recommended Follows with [facility] Hyperlipidemia Chronic back pain GERD (gastroesophageal reflux disease) Well controlled and stable Pulmonary embolism 2012, post-op, no clotting disorders found on heme workup- had IVC filter placed- and later removed. No blood thinners x years - only on ASA 81mg Hypertension Surgical History History of surgery on arm "left" Status post reverse total arthroplasty of left shoulder S/P lumbar fusion Status post reverse total replacement of right shoulder 04/11/2020: Grade 2 view, MAC#3, ETT#7.5 atraumatic x 1 + PNB. No issues per anesthesia postop progress note. History of right hip replacement 06/23/2018: SAB at L3-L4, 4 attempts. Undescended testicle, unilateral relocation surgery "to put in place" History of herniorrhaphy UMBILICAL [place] teeth extracted History of colonoscopy History of surgery on left wrist H/O foot surgery right S/P IVC filter subsequent removal* Pilonidal cyst removal History of tonsillectomy History of ankle surgery right H/O hand surgery left thumb History of cholecystectomy History of appendectomy History of repair of rotator cuff R/L x2 History of cardiac cath x 2 total, no stents > remote hx per pt History of discectomy + cervical fusion (20+ years ago), no ROM limitations Fusion of spine lumbar x3 Family History Father Family hx of colon cancer Family history of diabetes mellitus Social History Smoking Status: Unknown if ever smoked Second Hand Exposure: No; Do You Dip or Chew Tobacco: No (25 yrs ago); Hx Alcohol Use: No Hx Substance Use: No Preferred Language: [place] Citizen Communication Ability: Effective Medical Consultant Required: No Beliefs That Will Affect Care: None Current Living Situation: Spouse current occupational status: retired Feels Safe at Home: Yes Assistive Devices: Glasses Physical Exam Vital Signs Vital Signs - 24 hr 05/07/25 14:23 05/07/25 14:23 05/07/25 14:25 Temperature 36.8 C Temperature Source Oral Pulse Rate 69 Pulse Rate [Apical] 69 Respiratory Rate 17 17 Respiratory Effort / Characteristics Labored Labored Blood Pressure 138/92 Blood Pressure [Right Arm] 138/92 Blood Pressure Mean 107 Blood Pressure Mean [Right Arm] 107 Pulse Oximetry 86 L 86 L 86 L Oxygen Delivery Method Room Air Room Air Room Air Nasal Cannula Oxygen Flow Rate 0 Sepsis Recent Fever Within 48 Hours No Sepsis New/Unexplained Change in Mental Status No Sepsis Action Taken by Nursing No Action Required Oxygen Flow Rate - Titration 2 Pulse Oximetry Post Tiitration 92 05/07/25 14:30 Temperature Temperature Source Pulse Rate 60 Pulse Rate [Apical] Respiratory Rate Respiratory Effort / Characteristics Blood Pressure Blood Pressure [Right Arm] Blood Pressure Mean Blood Pressure Mean [Right Arm] Pulse Oximetry Oxygen Delivery Method Oxygen Flow Rate Sepsis Recent Fever Within 48 Hours Sepsis New/Unexplained Change in Mental Status Sepsis Action Taken by Nursing Oxygen Flow Rate - Titration Pulse Oximetry Post Tiitration Physical Exam HENT: Exam performed. - Head: Normocephalic and atraumatic. EYES: Conjunctivae and EOM are normal. Right eye exhibits no discharge. Left eye exhibits no discharge. No scleral icterus. NECK: Normal range of motion. Neck supple. No JVD present. CV: Normal rate, regular rhythm, normal heart sounds and intact distal pulses. There is no peripheral edema. Palpable radial pulses bue. PULM/CHEST: Effort normal and breath sounds normal. No respiratory distress. No stridor. no wheezes. no rales. ABD: The abdomen is soft. There is no tenderness. NEURO: Motor and sensation grossly intact. Course Course 1412: The patient was evaluated in room A9. A complete history and physical exam was performed Cardiac monitoring: An order was placed for continuous cardiac monitoring. The monitor shows a rate of 60 with sinus rhythm interpreted by me Patient hypoxic on room air. Supplemental oxygen applied via nasal kit which improved the patient's oxygen saturation. 1555: Vital signs stable on supplemental oxygen. D-dimer is elevated. Will obtain CTA of the chest. Family states that they have a relative who is an orthopedist and is requesting a CT of the head. CT of the head ordered. 165: Vital signs stable on supplemental oxygen via nasal cannula. CT head negative. CTA chest negative for PE. There are trace bilateral pleural effusions. Troponin and BNP are unremarkable. Patient be admitted to the [facility] team. Administered Medications Discontinued Medications Aspirin (Aspirin Chew 324 Mg) 324 mg PO NOW STA Stop: 05/07/25 14:13 Last Admin: 05/07/25 14:46 Dose: 324 mg Documented By: zahra Ioversol (Optiray 320 125ml) 115 ml IV ONCE ONE Stop: 05/07/25 16:04 Last Admin: 05/07/25 16:07 Dose: 115 ml Documented By: SONAL Medical Decision Making Laboratory Data Attestation: I reviewed the patient's lab results. 05/07/25 14:45 05/07/25 14:45 Labs: Lab Results 05/07/25 Range/Units 14:45 WBC 7.83 (4.8-10.8) K/ul RBC 4.93 (4.70-6.10) M/uL Hgb 15.3 (14.0-18.0) g/dL Hct 45.4 (42.0-52.0) % MCV 92.1 (80.0-100.0) fL MCH 31.0 (25.0-34.0) pg MCHC 33.7 (32.0-36.0) g/dL RDW Std Deviation 43.8 (36.4-46.3) fL RDW Coeff of [place] 12.9 (11.5-14.5) % Plt Count 119 L (130-400) K/uL MPV 10.5 (9.4-12.4) fL Immature Gran % (Auto) 1.1 % Neut % (Auto) 51.1 % Lymph % (Auto) 35.1 % [place] % (Auto) 11.2 % Eos % (Auto) 1.0 % Baso % (Auto) 0.5 % Neut # (Auto) 3.99 (1.40-6.50) K/uL Lymph # (Auto) 2.75 (1.20-3.40) K/uL [place] # (Auto) 0.88 H (0.11-0.59) K/uL Eos # (Auto) 0.08 (0.00-0.50) K/uL Baso # (Auto) 0.04 (0.00-0.20) K/uL Immature Gran # (Auto) 0.09 (0.01-0.20) K/uL PT 11.0 (9.0-12.0) Seconds INR 1.0 (0.9-1.1) APTT 24 (21-31) Seconds PTT Ratio 0.9 D-Dimer 1370 H* (0-500) ug/L FEU VBG pH 7.36 (7.36-7.41) VBG pCO2 52 H (38-50) mmHg VBG pO2 42 mmHg VBG HCO3 29 mmol/L VBG O2 Saturation 73.6 % VBG Base Excess 2.8 mEq/L Sodium 140 (136-145) mmol/L Potassium 4.1 (3.5-5.1) mmol/L Chloride 107 (98-107) mmol/L Carbon Dioxide 27 (21-32) mmol/L Anion Gap 6 (3-11) BUN 17 (6-23) mg/dl Creatinine 0.48 L (0.6-1.4) mg/dl Est Cr Clr Drug Dosing 121.8 ml/min eGFR 108.36 BUN/Creatinine Ratio 35.4 H (10-20) Glucose 80 (70-99(Fasting)) mg/dl Calcium 9.2 (8.6-10.3) mg/dl Troponin I High Sens 5.5 (0-20) pg/ml B-Natriuretic Peptide 60 (0-100) pg/ml Lipase 32 (11-82) U/L SARS-CoV-2 (PCR) NEGATIVE (Negative) Influenza Type A (PCR) Negative (Neg) Influenza Type B (PCR) Negative (Neg) RSV (RT-PCR) Negative (Neg) Imaging Data Chest x-ray: Radiologist's impression: SINGLE VIEW CHEST CLINICAL HISTORY: Chest pain FINDINGS: An AP, portable, upright chest radiograph is compared to chest x-ray and chest CT dated 09/17/2023. The examination is degraded by portable technique and apical lordotic positioning. The heart is enlarged noting atherosclerotic calcification of the thoracic aorta. There is pulmonary vascular congestion. Small pleural effusions are suspected with dependent atelectasis. No pneumothorax is seen. The skeletal structures are osteopenic. The bony thorax is grossly intact. Fusion hardware seen in the lower cervical spine and at the thoracolumbar junction. Bilateral shoulder arthroplasties are in place. IMPRESSION: 1. Cardiomegaly with evidence of congestive failure. Radiographic follow-up to resolution is recommended. 2. Suspect small pleural effusions. ACT 112: Negative or not required by law. Electronically signed by: Don Marks M.D. 05/07/2025 2:44 PM Dictated: 05/07/25 144 Transcribed: 05/07/251442 CT scan - head: Radiologist's impression: CT head without contrast History: Trauma Comparison: None Technique: Using multidetector thin collimation helical acquisition technique, axial, coronal and sagittal CT images from the skull base to the vertex were obtained without intravenous contrast. Dose reduction techniques were achieved by using automatic exposure control and/or adjustment of mA and/or kV according to patient size and/or use of iterative reconstruction technique. Findings: No intracranial hemorrhage, mass-effect, or midline shift. The ventricles are proportionate to the cerebral sulci. The lainez to white matter differentiation of the cerebral hemispheres is preserved. The basal cisterns are patent. There is moderate cerebral atrophy. Moderate, patchy low-attenuation changes in the white matter, most suggestive of sequelae of chronic small vessel ischemic disease. The visualized paranasal sinuses are clear. Mastoid air cells are clear. Impression: No acute intracranial pathology. Electronically signed by Paul Tavarez 05-07-2025 4:21 PM Dictated: 05/07/25 1558 Transcribed: CT scan - chest: Radiologist's impression: CT pulmonary angiogram with IV contrast History: Chest pain COMPARISON: None TECHNIQUE: CT angiography of the chest was performed without IV contrast followed by IV contrast, including 3D post processing CTA image reconstruction. Dose reduction techniques were achieved by using automatic exposure control and/or adjustment of mA and/or kV according to patient size and/or use of iterative reconstruction technique. FINDINGS: Diagnostic quality: Adequate There is no evidence for pulmonary embolism. The heart is not enlarged. Heavy coronary calcifications. There is no pericardial effusion. There are no abnormally enlarged hilar or mediastinal lymph nodes. The central tracheobronchial tree is clear. Moderate, confluent bibasilar atelectasis. Trace bilateral pleural effusion. Limited visualized upper abdomen. Bilateral shoulder arthroplasty. Fixation changes of the lower thoracic spine. No destructive osseous changes are seen. IMPRESSION: No evidence for pulmonary embolism. Moderate confluent atelectasis of the lung bases. Trace pleural effusions. Electronically signed by Paul Tavarez 05-07-2025 4:32 PM Dictated: 05/07/25 1558 Transcribed: ECG Data Attestation: I personally reviewed and interpreted this ECG as follows: Rate (beats per minute): 61 Rhythm: normal sinus Findings: no ST depression, no ST elevation or no prolonged QT MDM Narrative 1412: The patient was evaluated in room A9. A complete history and physical exam was performed Cardiac monitoring: An order was placed for continuous cardiac monitoring. The monitor shows a rate of 60 with sinus rhythm interpreted by me Patient hypoxic on room air. Supplemental oxygen applied via nasal kit which improved the patient's oxygen saturation. 1555: Vital signs stable on supplemental oxygen. D-dimer is elevated. Will obtain CTA of the chest. Family states that they have a relative who is an orthopedist and is requesting a CT of the head. CT of the head ordered. 165: Vital signs stable on supplemental oxygen via nasal cannula. CT head negative. CTA chest negative for PE. There are trace bilateral pleural effusions. Troponin and BNP are unremarkable. Patient be admitted to the [facility] team. Impression & Plan Hypoxia Critical Care Time Critical Care Time: Yes Total Critical Care Time: 47 I have personally spent greater than 47 minutes of critical care time in the direct management of this patient. This includes bedside care, interpretation of diagnostic studies, and testing, discussion with consultants, patient, and family members, and other required patient management activities. This 47 minutes is in excess of all separately billable procedures. Discharge Plan Visit Data Chief Complaint: Chest Pain Stated Complaint: CHEST PAIN ED Provider: Parker Godfrey Discharge Problem: Hypoxia Patient Disposition: Admitted As Inpatient Condition: Serious Forms Stand Alone Forms: My [facility] [employer] Prescriptions Prescriptions: No Action riluzole 50 mg tablet PO BID isosorbide dinitrate 5 mg tablet PO ONCE tamsulosin [Flomax] 0.4 mg capsule 0.4 mg PO DAILY Qty: 90 3RF atorvastatin 40 mg Tablet 40 mg PO QAM atenolol 25 mg Tablet 25 mg PO QAM losartan 25 mg Tablet 25 mg PO QAM naproxen sodium [Aleve] 220 mg Capsule 440 mg PO BID PRN (Reason: Pain) aspirin [Ecotrin Low Strength] 81 mg tablet,delayed release (DR/EC) 81 mg PO QAM donepezil 10 mg tablet 10 mg PO QAM cholecalciferol (vitamin D3) [Vitamin D3] 25 mcg (1,000 unit) Capsule 25 mcg PO DAILY Prolia 60 mg/mL Syringe 60 mg SUBCUT .[id number] amoxicillin 500 mg tablet 2,000 mg PO DIRECTED PRN (Reason: 1 HR PRIOR TO DENTAL APPOINTMENTS) Rx Instructions: ONE HOUR PRIOR TO DENTAL PROCEDURE Referrals Referrals: Shane Da Silva MD [Primary Care Provider] -
[2025-05-07] MEDS: ASPIRIN CHEW 324 MG PO STA (14:46)
--- NOTE | 2025-05-07 14:46 | XRay Report ---
SINGLE VIEW CHEST CLINICAL HISTORY: Chest pain FINDINGS: An AP, portable, upright chest radiograph is compared to chest x-ray and chest CT dated 08/22. The examination is degraded by portable technique and apical lordotic positioning. The heart is enlarged noting atherosclerotic calcification of the thoracic aorta. There is pulmonary vascular c ongestion. Small pleural effusions are suspected with dependent atelectasis. No pneumothorax is seen. The skeletal structures are osteopenic. The bony thorax is grossly intact. Fusion hardware seen in t he lower cervical spine and at the thoracolumbar junction. Bilateral shoulder arthroplasties are in p lace. IMPRESSION: 1. Cardiomegaly with evidence of congestive failure. Radiographic follow-up to resolution is recommen ded. 2. Suspect small pleural effusions. ACT 112: Negative or not required by law. Electronically signed by: Don Marks M.D. 05/07/2025 2:44 PM
[2025-05-07 15:01] LABS: Base Excess VBG 2.8 mEq/L; HCO3 VBG 29 mmol/L; Oxygen Saturation VBG 73.6 %; PCO2 VBG 52 mmHg (38-50); PO2 VBG 42 mmHg; pH VBG 7.36 (7.36-7.41)
[2025-05-07 15:08] LABS: Hematocrit (blood only) 45.4 % (42.0-52.0); Hemoglobin 15.3 g/dL (14.0-18.0); Immature Granulocytes # (auto) 0.09 K/uL (0.01-0.20); Immature Granulocytes % (auto) 1.1 %; Mean Corpuscular Hemoglobin 31.0 pg (25.0-34.0); Mean Corpuscular Volume 92.1 fL (80.0-100.0); Platelet Count 119 K/uL (130-400); RDW Standard Deviation 43.8 fL (36.4-46.3); Red Blood Count 4.93 M/uL (4.70-6.10); White Blood Count 7.83 K/ul (4.8-10.8)
[2025-05-07 15:23] LABS: Anion Gap 6.0 (3-11); Blood Urea Nitrogen 17.0 mg/dl (6-23); Calcium 9.2 mg/dl (8.6-10.3); Carbon Dioxide 27.0 mmol/L (21-32); Chloride 107.0 mmol/L (98-107); Creatinine Clr Calc Pharmacy 121.8 ml/min; Glucose 80.0 mg/dl (70-99(Fasting)); Lipase 32.0 U/L (11-82); Potassium 4.1 mmol/L (3.5-5.1); Sodium 140.0 mmol/L (136-145)
[2025-05-07 15:38] LABS: INR 1.0 (0.9-1.1); Partial Thromboplastin Time 24 Seconds (21-31); Prothrombin Time 11.0 Seconds (9.0-12.0)
[2025-05-07 15:48] LABS: Influenza A virus by PCR Negative (Neg); Influenza B virus by PCR Negative (Neg); SARS CoV2 RNA(COVID-19) Ceph NEGATIVE (Negative)
[2025-05-07] MEDS: OPTIRAY 320 125ml IV ONE (16:07)
--- NOTE | 2025-05-07 16:21 | CT Scan Report ---
CT head without contrast History: Trauma Comparison: None Technique: Using multidetector thin collimation helical acquisition technique, axial, coronal and sagittal CT images from the skull base to the vertex were obtained without intravenous contrast. Dose reduction techniques were achieved by using automatic exposure control and/or adjustment of mA and/or kV according to patient size and/or use of iterative reconstruction technique. Findings: No intracranial hemorrhage, mass-effect, or midline shift. The ventricles are proportionate to the cerebral sulci. The lainez to white matter differentiation of the cerebral hemispheres is preserved. The basal cisterns are patent. There is moderate cerebral atrophy. Moderate, patchy low-attenuation changes in the white matter, most suggestive of sequelae of chronic small vessel ischemic disease. The visualized paranasal sinuses are clear. Mastoid air cells are clear. Impression: No acute intracranial pathology. Electronically signed by Paul Tavarez 05-07-2025 4:21 PM
--- NOTE | 2025-05-07 16:32 | CT Scan Report ---
CT pulmonary angiogram with IV contrast History: Chest pain COMPARISON: None TECHNIQUE: CT angiography of the chest was performed without IV contrast followed by IV contrast, including 3D post processing CTA image reconstruction. Dose reduction techniques were achieved by using automatic exposure control and/or adjustment of mA and/or kV according to patient size and/or use of iterative reconstruction technique. FINDINGS: Diagnostic quality: Adequate There is no evidence for pulmonary embolism. The heart is not enlarged. Heavy coronary calcifications. There is no pericardial effusion. There are no abnormally enlarged hilar or mediastinal lymph nodes. The central tracheobronchial tree is clear. Moderate, confluent bibasilar atelectasis. Trace bilateral pleural effusion. Limited visualized upper abdomen. Bilateral shoulder arthroplasty. Fixation changes of the lower thoracic spine. No destructive osseous changes are seen. IMPRESSION: No evidence for pulmonary embolism. Moderate confluent atelectasis of the lung bases. Trace pleural effusions. Electronically signed by Paul Tavarez 05-07-2025 4:32 PM
[2025-05-07] MEDS: FUROSEMIDE 40 MG/4 ML VIAL IV ONE (16:47)
--- NOTE | 2025-05-07 16:56 | History & Physical Report ---
Date of Service May 07, 2025 Assessment & Plan (1) Hypoxia: (2) Chest pain: (3) Dementia: (4) ALS (amyotrophic lateral sclerosis): Plan This is a 74-year-old male who has significant past medical history of HTN, HLD, moderate Alzheimer's dementia, ALS, history of PE, GERD, ALEC on BiPAP who presents to ED secondary to chest pain and difficulty breathing prior to arrival. #Hypoxia #Bilateral Moderate Atelectasis pt presents to ED 2/2 substernal chest pain, hypoxia and mild hypotension sx improved with oxygen Chest CTA w/o PE, but + moderate atelectasis no evidence of PNA, he does not exam as volume overload suspect hypoxia from hypoventilation in setting of ALS continue O2 support for now, encourage ISP, will consult pulm currently on Bipap at HS trend trops and obtain echocardiogram #ALS follows [place] [facility], [facility] neuro on riluzole #Alzhemiers continue Aricept, memantine A and O x 3, receiving monoclonal antibody infusion has completed 11 out of 12 #HTN bp low on arrival, will hold atenolol for now obtain orthostatics, gentle IVF previously was on losartan but this was stopped due to lower bp #DVT ppx: SQ Lovenox, monitor plt count FULL CODE PCP: Avinash Dispo: admit to tele pt was seen and examined in collaboration with Dr. Guevara, please see addendum I spent a total of 76 minutes coordinating, documenting and providing care for this patient excluding time spent in the performance of separately billed services or time spent by another provider/QHP. History of Present Illness Chief Complaint: CP and difficulty breathing OR SCRUB TECH. Primary Care Provider: Shane Da Silva MD This is a 74-year-old male who has significant past medical history of HTN, HLD, moderate Alzheimer's dementia, ALS, history of PE, CAD, GERD, ALEC on BiPAP who presents to ED secondary to chest pain and difficulty breathing prior to arrival. Of significance patient follows with Dr. Cruz of [facility] neurology. He is currently on monoclonal antibody therapy for dementia. History obtained from patient, his at bedside and external chart review. He reports sudden onset of acute chest pain that started earlier this morning. Pain was substernal, nonradiating and lasted for several hours. It was associated with shortness of breath. Nothing seem to make the pain worse or better. tried to obtain a pulse ox which read was in the 80s. This is when she summoned EMS. When EMS arrived his pulse ox was in the low 90s but his blood pressure was systolically in the 80s. They encouraged ER evaluation. Patient has otherwise been in good health with no recent respiratory illness. He does suffer from ALS and follows with [facility]. does report shallow breathing. He does wear a BiPAP at night. He has never experienced anything like this in the past. Denies any previous CAD or coronary intervention. He does have a history of reflux and denies similar feeling. Currently in ED he is on oxygen therapy and is feeling much improved. He denies any lightheadedness, dizziness, cough, hemoptysis, nausea or vomiting. He denies any recent change in weight. reports he does 2 protein shakes a day along with 1000 tequila and has been able to maintain his weight despite decreased activity in setting of ALS diagnosis. In ED patient's initial ECG was in normal sinus rhythm without any ischemic change. His initial troponin was unremarkable. Initial chest x- ray concerning for possible pleural effusion and congestive findings. Due to elevated D-dimer a CTA was obtained. CT chest was negative for PE but does reveal moderate atelectasis and small basilar pleural effusions. Allergies Allergy/AdvReac Type Severity Reaction Status Date / Time pollen extracts Allergy Intermediate Sneezing Verified 08/10/24 08:30 Home Medications Medication Instructions Recorded Confirmed Type atenolol 25 mg tablet 25 mg PO QAM 05/24/18 05/07/25 History atorvastatin 40 mg tablet 40 mg PO QAM 05/24/18 05/07/25 History aspirin 81 mg tablet,delayed 81 mg PO QAM 02/26/20 05/07/25 History release (Ecotrin Low Strength) amoxicillin 500 mg tablet 2,000 mg PO DIRECTED PRN 1 HR 09/17/23 05/07/25 History PRIOR TO DENTAL APPOINTMENTS cholecalciferol (vitamin D3) 25 25 mcg PO DAILY 09/17/23 05/07/25 History mcg (1,000 unit) capsule (Vitamin D3) denosumab 60 mg/mL subcutaneous 60 mg subcut .[id number] 09/17/23 05/07/25 History syringe (Prolia) donepezil 10 mg tablet 10 mg PO QAM 09/17/23 05/07/25 History isosorbide dinitrate 5 mg tablet 5 mg PO BID 08/10/24 05/07/25 History riluzole 50 mg tablet 50 mg PO BID 08/10/24 05/07/25 History donanemab-azbt 17.5 mg/mL 1,400 mg IV Q4WK 05/07/25 05/07/25 History intravenous solution (Kisunla) melatonin 3 mg capsule 3 mg PO NOW 05/07/25 05/07/25 History memantine 10 mg tablet 10 mg PO BID 05/07/25 05/07/25 History mirtazapine 15 mg tablet 15 mg PO HS 05/07/25 05/07/25 History tamsulosin 0.4 mg capsule 0.4 mg PO DAILY 05/07/25 05/07/25 History Past Med/Surg History Problem List (Updated 05/07/25 @ 17:45 by Shannon Schuster PA-C) Chest pain Hypoxia (Acute) Cervical radiculopathy at C8 Idiopathic polyneuropathy Lower urinary tract symptoms (LUTS) (Chronic) Left testicular pain (Chronic) Thigh pain Synovitis of elbow Tear meniscus knee Osteoarthritis of right hip Dyslipidemia (Chronic) HTN (hypertension) (Chronic) Medical History ALS (amyotrophic lateral sclerosis) Dementia DVT (deep venous thrombosis) 2012, post-op Idiopathic polyneuropathy Lower urinary tract symptoms (LUTS) Mild cognitive impairment Osteoporosis CAD (coronary artery disease) Mild, non-obstructive per 2015 cardiac cath (40% mid RCA stenosis, 40% PDA stenosis and 25% ostial Cx stenosis with mild luminal irregularities in LAD system)-Medical management recommended Follows with [facility] Hyperlipidemia Chronic back pain GERD (gastroesophageal reflux disease) Well controlled and stable Pulmonary embolism 2012, post-op, no clotting disorders found on heme workup- had IVC filter placed- and later removed. No blood thinners x years - only on ASA 81mg Hypertension Surgical History History of surgery on arm "left" Status post reverse total arthroplasty of left shoulder S/P lumbar fusion Status post reverse total replacement of right shoulder 04/11/2020: Grade 2 view, MAC#3, ETT#7.5 atraumatic x 1 + PNB. No issues per anesthesia postop progress note. History of right hip replacement 06/23/2018: SAB at L3-L4, 4 attempts. Undescended testicle, unilateral relocation surgery "to put in place" History of herniorrhaphy UMBILICAL [place] teeth extracted History of colonoscopy History of surgery on left wrist H/O foot surgery right S/P IVC filter subsequent removal* Pilonidal cyst removal History of tonsillectomy History of ankle surgery right H/O hand surgery left thumb History of cholecystectomy History of appendectomy History of repair of rotator cuff R/L x2 History of cardiac cath x 2 total, no stents > remote hx per pt History of discectomy + cervical fusion (20+ years ago), no ROM limitations Fusion of spine lumbar x3 Family History Father Family hx of colon cancer Family history of diabetes mellitus Social History Smoking Status: Never smoker Second Hand Exposure: No; Do You Dip or Chew Tobacco: No (25 yrs ago); Hx Alcohol Use: No Hx Substance Use: No Preferred Language: Rwandan Communication Ability: Effective Preschool Director Required: No Beliefs That Will Affect Care: None Current Living Situation: Spouse current occupational status: retired Other Information That Helps Us Care for You: No Feels Safe at Home: Yes Safety Concerns: Feels Safe At This Time Assistive Devices: BiPap, Glasses, Oxygen - Continuous and Walker Review of Systems Review of Systems: All systems reviewed & are unremarkable except as noted in HPI & below Physical Exam Physical Exam: Results & Data Results & Data Vital Signs (Past 12 Hours) Vital Signs Temp Pulse Pulse Resp BP BP Pulse Ox 05/07/25 14:30 60 05/07/25 14:25 86 L 05/07/25 14:23 69 17 138/92 86 L 05/07/25 14:23 36.8 C 69 17 138/92 86 L O2 Del Method O2 Flow Rate 05/07/25 14:30 05/07/25 14:25 Room Air, Nasal Cannula 0 05/07/25 14:23 Room Air 05/07/25 14:23 Room Air Laboratory Results I have independently reviewed and interpreted patient's admitting labs including CBC, CMP, PTT, PT/INR, mag and troponin. Diagnostic Findings Chest X-Ray 05/07/25 14:13 SINGLE VIEW CHEST CLINICAL HISTORY: Chest pain FINDINGS: An AP, portable, upright chest radiograph is compared to chest x-ray and chest CT dated 09/17/2023. The examination is degraded by portable technique and apical lordotic positioning. The heart is enlarged noting atherosclerotic calcification of the thoracic aorta. There is pulmonary vascular congestion. Small pleural effusions are suspected with dependent atelectasis. No pneumothorax is seen. The skeletal structures are osteopenic. The bony thorax is grossly intact. Fusion hardware seen in the lower cervical spine and at the thoracolumbar junction. Bilateral shoulder arthroplasties are in place. IMPRESSION: 1. Cardiomegaly with evidence of congestive failure. Radiographic follow-up to resolution is recommended. 2. Suspect small pleural effusions. ACT 112: Negative or not required by law. Electronically signed by: Don Marks M.D. 05/07/2025 2:44 PM Chest CTA 05/07/25 15:43 CT pulmonary angiogram with IV contrast History: Chest pain COMPARISON: None TECHNIQUE: CT angiography of the chest was performed without IV contrast followed by IV contrast, including 3D post processing CTA image reconstruction. Dose reduction techniques were achieved by using automatic exposure control and/or adjustment of mA and/or kV according to patient size and/or use of iterative reconstruction technique. FINDINGS: Diagnostic quality: Adequate There is no evidence for pulmonary embolism. The heart is not enlarged. Heavy coronary calcifications. There is no pericardial effusion. There are no abnormally enlarged hilar or mediastinal lymph nodes. The central tracheobronchial tree is clear. Moderate, confluent bibasilar atelectasis. Trace bilateral pleural effusion. Limited visualized upper abdomen. Bilateral shoulder arthroplasty. Fixation changes of the lower thoracic spine. No destructive osseous changes are seen. IMPRESSION: No evidence for pulmonary embolism. Moderate confluent atelectasis of the lung bases. Trace pleural effusions. Electronically signed by Paul Tavarez 05-07-2025 4:[address] 05/07/25 15:55 CT head without contrast History: Trauma Comparison: None Technique: Using multidetector thin collimation helical acquisition technique, axial, coronal and sagittal CT images from the skull base to the vertex were obtained without intravenous contrast. Dose reduction techniques were achieved by using automatic exposure control and/or adjustment of mA and/or kV according to patient size and/or use of iterative reconstruction technique. Findings: No intracranial hemorrhage, mass-effect, or midline shift. The ventricles are proportionate to the cerebral sulci. The lainez to white matter differentiation of the cerebral hemispheres is preserved. The basal cisterns are patent. There is moderate cerebral atrophy. Moderate, patchy low-attenuation changes in the white matter, most suggestive of sequelae of chronic small vessel ischemic disease. The visualized paranasal sinuses are clear. Mastoid air cells are clear. Impression: No acute intracranial pathology. Electronically signed by Paul Tavarez 05-07-2025 4:21 PM Medications Administered Medication List Discontinued Medications Aspirin (Aspirin Chew 324 Mg) 324 mg PO NOW STA Stop: 05/07/25 14:13 Last Admin: 05/07/25 14:46 Dose: 324 mg Documented By: zahra Furosemide (Furosemide 40 Mg/4 Ml Vial) 40 mg IV ONE ONE Stop: 05/07/25 16:34 Last Admin: 05/07/25 16:47 Dose: Not Given Documented By: [facility] Ioversol (Optiray 320 125ml) 115 ml IV ONCE ONE Stop: 05/07/25 16:04 Last Admin: 05/07/25 16:07 Dose: 115 ml Documented By: SONAL ECG Additional Comments: I have independently reviewed and interpreted patient's admitting EKG which revealed: NSR 60s no st or t wave changes COVID-19 Results Results COVID-19 Adm Lab Results: RBC 4.56 M/uL (4.70-6.10) L 05/08/25 WBC 5.96 K/ul (4.8-10.8) 05/08/25 Hgb 14.2 g/dL (14.0-18.0) 05/08/25 Hct 42.3 % (42.0-52.0) 05/08/25 Plt Count 123 K/uL (130-400) L 05/08/25 Neutrophils (%) (Auto) 57.9 % 05/08/25 Lymphocytes (%) (Auto) 29.4 % 05/08/25 Monocytes # (Auto) 0.61 K/uL (0.11-0.59) H 05/08/25 Eosinophils # (Auto) 0.10 K/uL (0.00-0.50) 05/08/25 Immature Granulocyte % (Auto) 0.3 % 05/08/25 Neutrophils # (Auto) 3.45 K/uL (1.40-6.50) 05/08/25 Lymphocytes # (Auto) 1.75 K/uL (1.20-3.40) 05/08/25 Monocytes # (Auto) 0.61 K/uL (0.11-0.59) H 05/08/25 Eosinophils # (Auto) 0.10 K/uL (0.00-0.50) 05/08/25 Basophils # (Auto) 0.03 K/uL (0.00-0.20) 05/08/25 Immature Granulocyte # (Auto) 0.02 K/uL (0.01-0.20) 5 Na 139 mmol/L (136-145) 05/08/25 K 3.8 mmol/L (3.5-5.1) 05/08/25 Cl 109 mmol/L (98-107) H 05/08/25 CO2 24 mmol/L (21-32) 05/08/25 Anion Gap 6 (3-11) 05/08/25 BUN 12 mg/dl (6-23) 05/08/25 Creatinine 0.41 mg/dl (0.6-1.4) L 05/08/25 BUN/Creatinine Ratio 29.3 (10-20) H 05/08/25 Glucose Level 83 mg/dl (70-99(Fasting)) 05/08/25 Ca 8.4 mg/dl (8.6-10.3) L 05/08/25 CRP 0.50 mg/dl (0-0.5) 05/07/25 Procalcitonin 0.03 ng/ml (0-0.5) 05/07/25 D-Dimer 1370 ug/L FEU (0-500) H* 05/07/25 PTT 24 Seconds (21-31) 05/07/25 INR 1.0 (0.9-1.1) 05/07/25 COVID-19 PCR NEGATIVE (Negative) 05/07/25 Influenza Virus Type A (PCR) Negative (Neg) 05/07/25 Influenza Virus Type B (PCR) Negative (Neg) 05/07/25 Chest X-Ray 05/07/25 Code Status & VTE Plan Code Status FULL CODE Supervising Physician Co-Signing Physician Notes delayed entry date of service noted above Attending Addendum: Case reviewed with the advanced practitioner. I have personally performed a history and physical examination on the patient. I have reviewed the advanced practitioner's documentation on the date of service referenced in note, and I agree with, and take responsibility for the plan of care. please refer to her notes for full details patient seen and examined, records reviewed by myself as well on exam, patient seen resting in bed, sitting up, comfortable, on 2L NC states chest pain has resolved no active shortness of breath while at rest, no cough/sputum production/fever/chills no other symptoms VS noted and reviewed oriented x3, not in distress, speaks in sentences with no effort nor accessory muscle use normal rate, regular rhythm, no murmurs clear breath sounds BL non distended, soft, nontender no bipedal edema, erythema, warmth no neuro deficits all labs, imaging noted and reviewed ASSESSMENT AND PLAN> ACUTE HYPOXIA SECONDARY TO ATELECTASIS IN THE SETTING OF ATYPICAL CHEST PAIN - CT chest: no signs of pneumonia, no PE doubt infectious process at this point Incentive spirometry encouraged Pulm consulted - chest pain resolved trop x 2 negative EKG no signs of acute ischemia echo ordered possible GERD, Musculoskeletal component? re-evaluate in AM other diagnoses and plan of care as per advanced practitioner's notes I spent a total of 40 minutes coordinating, documenting, and providing care for this patient, excluding time spent in the performance of separately billed services or time spent by another provider/QHP. Navarro Guevara MD
--- NOTE | 2025-05-07 17:47 | Pulmonary Consultation ---
Date of Consultation May 07, 2025 Assessment & Plan (1) Acute respiratory failure with hypoxia: (2) GERD (gastroesophageal reflux disease): (3) Atelectasis of both lungs: (4) ALS (amyotrophic lateral sclerosis): Plan CT chest 05/07/2025 personally reviewed: Motion degraded study Elevated right hemidiaphragm Dependent atelectasis bilateral lower lobes No significant mediastinal lymphadenopathy -- Acute hypoxic respiratory failure Likely secondary to VQ mismatch from atelectasis CT chest does not show any clear signs of pneumonia Respiratory panel negative for COVID-19, influenza A/B as well as RSV on 05/07/2025 -- Patient has AVAPS machine at home and is compliant with it As per the patient's FVC was 46% predicted with a neurologist at [place] --History of pulmonary emboli Not on anticoagulation -- ALS On riluzole -- Alzheimer's disease On donanemab Plan: Continue with incentive spirometry Based on the CAT scan of the chest I doubt patient has infection within the lungs He does have some atelectasis on lower part of the lungs. The etiology for the atelectasis of the lower part of the lungs is likely chest pain as he is not able to take a deep breath in. Would recommend to rule out etiologies for chest pain including but not limited to heart as well as reflux Procalcitonin has been ordered for the patient. He was hypotensive when the EMS arrived. I will order UA to make sure that is not infected Continue with BiPAP/AVAPS nightly and as needed shortness of breath Please note the above document was generated using voice recognition software. It may contain grammatical, syntax or spelling errors.Any formal questions or concerns about the content, text or information contained within the body of this dictation should be directly addressed to the provider for clarification. History of Present Illness History of Present Illness 74-year-old male present to the hospital with complaints of chest pain and shortness of breath Past medical history: Alzheimer's dementia, hypertension, dyslipidemia, coronary artery disease, GERD, ALEC on BiPAP At the time of examination patient's was in the room History was obtained mainly from patient's Patient stated that he woke up in the morning with complaints of chest pain. Around that time patient's checked her oxygen saturation and it was in the low 80s. On repeating the pulse ox it went up to the high 80s When the ambulance people came in the saturation was around 93% Patient was also hypotensive at home with systolic in the 80s as per the Patient denied any pleuritic chest pain at the time of examination Denies any recent upper respite tract infection No fever or chills. Does have a history of reflux on and off. He is compliant with his BiPAP. No dysuria or diarrhea prior to coming to the hospital Social history: Lifetime non-smoker Allergies Allergy/AdvReac Type Severity Reaction Status Date / Time pollen extracts Allergy Intermediate Sneezing Verified 08/10/24 08:30 Home Medications Medication Instructions Recorded Confirmed Type atenolol 25 mg tablet 25 mg PO QAM 05/24/18 05/07/25 History atorvastatin 40 mg tablet 40 mg PO QAM 05/24/18 05/07/25 History aspirin 81 mg tablet,delayed 81 mg PO QAM 02/26/20 05/07/25 History release (Ecotrin Low Strength) amoxicillin 500 mg tablet 2,000 mg PO DIRECTED PRN 1 HR 09/17/23 05/07/25 History PRIOR TO DENTAL APPOINTMENTS cholecalciferol (vitamin D3) 25 25 mcg PO DAILY 09/17/23 05/07/25 History mcg (1,000 unit) capsule (Vitamin D3) denosumab 60 mg/mL subcutaneous 60 mg subcut .[id number] 09/17/23 05/07/25 History syringe (Prolia) donepezil 10 mg tablet 10 mg PO QAM 09/17/23 05/07/25 History isosorbide dinitrate 5 mg tablet 5 mg PO BID 08/10/24 05/07/25 History riluzole 50 mg tablet 50 mg PO BID 08/10/24 05/07/25 History donanemab-azbt 17.5 mg/mL 1,400 mg IV Q4WK 05/07/25 05/07/25 History intravenous solution (Kisunla) melatonin 3 mg capsule 3 mg PO NOW 05/07/25 05/07/25 History memantine 10 mg tablet 10 mg PO BID 05/07/25 05/07/25 History mirtazapine 15 mg tablet 15 mg PO HS 05/07/25 05/07/25 History tamsulosin 0.4 mg capsule 0.4 mg PO DAILY 05/07/25 05/07/25 History guaifenesin 600 mg tablet, 600 mg PO BID PRN cough/congestion 05/08/25 Rx extended release 12 hr (Mucinex) #30 tabs pantoprazole 40 mg tablet,delayed 40 mg PO QAM #30 tabs 05/08/25 Rx release Patient History Medical History ALS (amyotrophic lateral sclerosis) Dementia DVT (deep venous thrombosis) 2012, post-op Idiopathic polyneuropathy Lower urinary tract symptoms (LUTS) Mild cognitive impairment Osteoporosis CAD (coronary artery disease) Mild, non-obstructive per 2014 cardiac cath (40% mid RCA stenosis, 40% PDA stenosis and 25% ostial Cx stenosis with mild luminal irregularities in LAD system)-Medical management recommended Follows with [facility] Hyperlipidemia Chronic back pain GERD (gastroesophageal reflux disease) Well controlled and stable Pulmonary embolism 2012, post-op, no clotting disorders found on heme workup- had IVC filter placed- and later removed. No blood thinners x years - only on ASA 81mg Hypertension Surgical History History of surgery on arm "left" Status post reverse total arthroplasty of left shoulder S/P lumbar fusion Status post reverse total replacement of right shoulder 04/11/2020: Grade 2 view, MAC#3, ETT#7.5 atraumatic x 1 + PNB. No issues per anesthesia postop progress note. History of right hip replacement 06/23/2018: SAB at L3-L4, 4 attempts. Undescended testicle, unilateral relocation surgery "to put in place" History of herniorrhaphy UMBILICAL [place] teeth extracted History of colonoscopy History of surgery on left wrist H/O foot surgery right S/P IVC filter subsequent removal* Pilonidal cyst removal History of tonsillectomy History of ankle surgery right H/O hand surgery left thumb History of cholecystectomy History of appendectomy History of repair of rotator cuff R/L x2 History of cardiac cath x 2 total, no stents > remote hx per pt History of discectomy + cervical fusion (20+ years ago), no ROM limitations Fusion of spine lumbar x3 Family History Father Family hx of colon cancer Family history of diabetes mellitus Social History Smoking Status: Never smoker Second Hand Exposure: No; Do You Dip or Chew Tobacco: No (25 yrs ago); Hx Alcohol Use: No Hx Substance Use: No Preferred Language: American Communication Ability: Effective Waterproofer Helper Required: No Beliefs That Will Affect Care: None Current Living Situation: Spouse current occupational status: retired Other Information That Helps Us Care for You: No Feels Safe at Home: Yes Safety Concerns: Feels Safe At This Time Assistive Devices: BiPap, Glasses, Oxygen - Continuous and Walker Review of Systems 2 Review of Systems: All systems reviewed & are unremarkable except as noted in HPI & below Physical Exam 2 Physical Exam: Constitutional: No acute distress HEENT: EOMI, PERRLA Respiratory system: Decreased air entry bilaterally, no wheeze, no rhonchi, mild crackles bilateral lower lobes CVS: S1-S2 positive, no murmurs or gallops Abdomen: Soft, nontender, nondistended, positive bowel sounds x4 Extremities: +2 pulses bilaterally radialis/ dorsalis pedis, no cyanosis, no edema Neuro: Awake alert oriented x3 Psych: Normal mood and affect G/U: No [place] Skin: no rashes, warm and dry Lymphatic: no cervical or axillary lymphadenopathy Results & Data Results & Data Vital Signs (Past 12 Hours) Vital Signs Temp Pulse Pulse Resp BP BP Pulse Ox 05/07/25 16:28 64 22 188/114 H 94 05/07/25 14:30 60 05/07/25 14:25 86 L 05/07/25 14:23 69 17 138/92 86 L 05/07/25 14:23 36.8 C 69 17 138/92 86 L O2 Del Method O2 Flow Rate 05/07/25 16:28 Room Air 05/07/25 14:30 05/07/25 14:25 Room Air, Nasal Cannula 0 05/07/25 14:23 Room Air 05/07/25 14:23 Room Air Laboratory Results 05/08/25 06:45 05/08/25 06:45 PG Care Time/CCT Total # of Minutes Spent Total Time Spent with Patient: Total time spent is greater than 50% in coordination of care (as documented) at patient's floor/unit and/or counseling patient: Coding Level of Care Code 34195 INT INP/OBS CARE MIN Diagnoses Acute respiratory failure with hypoxia J96.01 GERD (gastroesophageal reflux disease) K21.9 Atelectasis of both lungs J98.11 ALS (amyotrophic lateral sclerosis) G12.21
[2025-05-07] MEDS ORDERED: ACETAMINOPHEN 325 MG TAB PO PRN (18:20)
[2025-05-07] MEDS ORDERED: ONDANSETRON INJ 2 MG/ML 2 ML VIAL IV PRN (18:20)
[2025-05-07] MEDS ORDERED: MAGNESIUM HYDROXIDE SUSP 30 ML UDC PO PRN (18:20)
[2025-05-07] MEDS ORDERED: ALUMINUM/MAGNESIUM SUSP 30 ML UDC PO PRN (18:20)
[2025-05-07] MEDS: SODIUM CHLORIDE 0.9% 1,000 ML IV SCH (18:25)
[2025-05-07] MEDS: SODIUM CHLOR 7% 4 ML NEB NEB SCH (19:29)
[2025-05-07] MEDS: MIRTAZAPINE TAB 15 MG TAB PO SCH (20:16)
[2025-05-07] MEDS: MEMANTINE HCL 10 MG TAB PO SCH (20:16)
[2025-05-07] MEDS: MELATONIN 3 MG TAB PO SCH (20:16)
[2025-05-07] MEDS: ENOXAPARIN INJ 40 MG/0.4 ML SYR SQ SCH (20:16)
[2025-05-07] MEDS: ISOSORBIDE DINITRATE 5 MG TAB PO SCH (20:16)
[2025-05-07] MEDS ORDERED: PNEUMOCOCCAL VACCINE (PCV20) 20-VAL CONJ-DIP CRM/PF 0.5 ML SYR IM ONE (21:56)
[2025-05-08] MEDS: ALBUTEROL 0.5% NEB SOLN 2.5 MG/0.5 ML VIAL NEB PRN (07:05)
[2025-05-08 07:39] LABS: Hematocrit (blood only) 42.3 % (42.0-52.0); Hemoglobin 14.2 g/dL (14.0-18.0); Immature Granulocytes # (auto) 0.02 K/uL (0.01-0.20); Immature Granulocytes % (auto) 0.3 %; Mean Corpuscular Hemoglobin 31.1 pg (25.0-34.0); Mean Corpuscular Volume 92.8 fL (80.0-100.0); Platelet Count 123 K/uL (130-400); RDW Standard Deviation 43.7 fL (36.4-46.3); Red Blood Count 4.56 M/uL (4.70-6.10); White Blood Count 5.96 K/ul (4.8-10.8)
[2025-05-08 07:57] LABS: Anion Gap 6.0 (3-11); Blood Urea Nitrogen 12.0 mg/dl (6-23); Calcium 8.4 mg/dl (8.6-10.3); Carbon Dioxide 24.0 mmol/L (21-32); Chloride 109.0 mmol/L (98-107); Creatinine Clr Calc Pharmacy 156.0 ml/min; Glucose 83.0 mg/dl (70-99(Fasting)); Potassium 3.8 mmol/L (3.5-5.1); Sodium 139.0 mmol/L (136-145)
[2025-05-08] MEDS: TAMSULOSIN HCL 0.4 MG CAP PO SCH (08:08)
[2025-05-08] MEDS: ASPIRIN 81 MG ECTAB PO SCH (08:09)
[2025-05-08] MEDS: DONEPEZIL HCL 10 MG TAB PO SCH (08:09)
[2025-05-08] MEDS: CHOLECALCIFEROL 25 MCG (1000 UNITS) TAB PO SCH (08:09)
[2025-05-08] MEDS: ATORVASTATIN 40 MG TAB PO SCH (08:09)
--- NOTE | 2025-05-08 08:57 | XCELERA ---
[id number]
[2025-05-08 10:57] VITALS: PULSE 60
[2025-05-08 11:40] VITALS: BP 105/55; RESP 20; TEMP 97.9
--- NOTE | 2025-05-08 12:18 | Communication Note ---
Date of Service: May 08, 2025 By CMS guidelines, a determination that the admission or continued stay is not medically necessary has been made by a member of the UR committee and a physician for this hospital stay, therefore a Code 44 will be completed and the Inpatient admission will be changed to outpatient.
--- NOTE | 2025-05-08 12:24 | Discharge Summary ---
Discharge Summary Date of Service May 08, 2025 By CMS guidelines, a determination that the admission or continued stay is not medically necessary has been made by a member of the Utilization Review committee and a physician for this hospital stay. Therefore, a Code 44 will be completed and the inpatient admission will be changed to outpatient. Principal Dx & Hospital Course #1 = Principal Diagnosis (1) Non-cardiac chest pain: Possible GI (2) Hypoxia: Due to atelectasis from impaired respiratory function associated with ALS (3) Atelectasis of both lungs: (4) Autonomic dysfunction: From ALS, potentially explaining hypotension (5) ALS (amyotrophic lateral sclerosis): (6) Dementia: (7) Idiopathic polyneuropathy: Plan Patient 74-year-old gentleman presented to the emergency room with complaints of some chest pain, hypoxia and low blood pressure. Patient has known ALS and follows closely with [facility]. In the emergency room initial workup was significant for an elevated D-dimer. CTA of the chest was negative for PE but did show some atelectasis. Due to the patient's symptoms was referred for further evaluation. Patient was observed in the hospital. His hypoxia resolved with incentive spirometry and flutter valve. On the day of discharge he was on room air at rest and maintain adequate O2 sat even with ambulation with therapy. Patient was seen by pulmonary here in the hospital. On their review of imaging did not feel that there was any signs of an infectious process or pneumonia. [place] that his transient hypoxia was most likely due to his atelectasis. Atelectasis most likely due to his weak inspiratory effort's associated with his ALS. Patient did have some transient hypotension yesterday as well. No associated fevers or other symptoms. This is most likely due to autonomic dysfunction associated with his ALS as well. Patient ruled out for acute coronary syndrome with normal troponins. Echocardiogram was performed which showed normal left ventricular wall motion and normal ejection fraction. No valvular disease and no pericardial effusion. Patient's and sister at the bedside at time of discharge. They feel he is back to his baseline. Patient is eager to get home. Explained to them that we have ruled out significant life-threatening events here in the hospital incl uding pulmonary embolism, myocardial infarction, severe lung infection. Thought is acute continue to manage him at home. He follow-up with his ALS clinic. We will assist him coordinating outpatient pulmonary follow-up. states that the ALS clinic had recommended he establish care with a manager night. We will send him home on a PPI patient does admit to some reflux however he did not thin k that yesterday his chest pain was his typical reflux but may benefit from PPI as well. Notes For Next Care Provider Continue outpatient management of issues arising with his ALS, following with ALS clinic at [facility] Medication Changes From Visit Protonix Admission HPI Per Admitting Provider This is a 74-year-old male who has significant past medical history of HTN, HLD, moderate Alzheimer's dementia, ALS, history of PE, CAD, GERD, ALEC on BiPAP who presents to ED secondary to chest pain and difficulty breathing prior to arrival. Of significance patient follows with Dr. Cruz of [facility] neurology. He is currently on monoclonal antibody therapy for dementia. History obtained from patient, his at bedside and external chart review. He reports sudden onset of acute chest pain that started earlier this morning. Pain was substernal, nonradiating and lasted for several hours. It was associated with shortness of breath. Nothing seem to make the pain worse or better. tried to obtain a pulse ox which read was in the 80s. This is when she summoned EMS. When EMS arrived his pulse ox was in the low 90s but his blood pressure was systolically in the 80s. They encouraged ER evaluation. Patient has otherwise been in good health with no recent respiratory illness. He does suffer from ALS and follows with [facility] ALS clinic. does report shallow breathing. He does wear a BiPAP at night. He has never experienced anything like this in the past. Denies any previous CAD or coronary intervention. He does have a history of reflux and denies similar feeling. Currently in ED he is on oxygen therapy and is feeling much improved. He denies any lightheadedness, dizziness, cough, hemoptysis, nausea or vomiting. He denies any recent change in weight. reports he does 2 protein shakes a day along with 1000 tequila and has been able to maintain his weight despite decreased activity in setting of ALS diagnosis. In ED patient's initial ECG was in normal sinus rhythm without any ischemic change. His initial troponin was unremarkable. Initial chest x- ray concerning for possible pleural effusion and congestive findings. Due to elevated D-dimer a CTA was obtained. CT chest was negative for PE but does reveal moderate atelectasis and small basilar pleural effusions. Admission Exam Per Admitting Provider See H&P Discharge Exam Constitutional: Alert, nontoxic, no acute distress HEENT: Mucous membranes moist. Lungs: Decreased breath sounds, difficulty taking deep breaths just due to strength, crackles at the bases, no wheezes CV: S1-S2, regular Abdomen: Soft, nontender, nondistended Extremities: No significant edema Neuro: No focal deficits Psych: Cooperative, normal mood Updated Medication List Medication Instructions Recorded Confirmed Type atenolol 25 mg tablet 25 mg PO QAM 05/24/18 05/07/25 History atorvastatin 40 mg tablet 40 mg PO QAM 05/24/18 05/07/25 History aspirin 81 mg tablet,delayed 81 mg PO QAM 02/26/20 05/07/25 History release (Ecotrin Low Strength) amoxicillin 500 mg tablet 2,000 mg PO DIRECTED PRN 1 HR 09/17/23 05/07/25 History PRIOR TO DENTAL APPOINTMENTS cholecalciferol (vitamin D3) 25 25 mcg PO DAILY 09/17/23 05/07/25 History mcg (1,000 unit) capsule (Vitamin D3) denosumab 60 mg/mL subcutaneous 60 mg subcut .[id number] 09/17/23 05/07/25 History syringe (Prolia) donepezil 10 mg tablet 10 mg PO QAM 09/17/23 05/07/25 History isosorbide dinitrate 5 mg tablet 5 mg PO BID 08/10/24 05/07/25 History riluzole 50 mg tablet 50 mg PO BID 08/10/24 05/07/25 History donanemab-azbt 17.5 mg/mL 1,400 mg IV Q4WK 05/07/25 05/07/25 History intravenous solution ([place]) melatonin 3 mg capsule 3 mg PO NOW 05/07/25 05/07/25 History memantine 10 mg tablet 10 mg PO BID 05/07/25 05/07/25 History mirtazapine 15 mg tablet 15 mg PO HS 05/07/25 05/07/25 History tamsulosin 0.4 mg capsule 0.4 mg PO DAILY 05/07/25 05/07/25 History guaifenesin 600 mg tablet, 600 mg PO BID PRN cough/congestion 05/08/25 Rx extended release 12 hr (Mucinex) #30 tabs pantoprazole 40 mg tablet,delayed 40 mg PO QAM #30 tabs 05/08/25 Rx release Hospital Stay Data Consultations 05/07/25 16:33 ED Decision to Admit Stat 05/07/25 17:28 Consult Pulmonology Routine Diagnostic Imagining Performed 05/07/25 15:43 CT angio chest PE protocol Stat 05/07/25 15:55 CT head/brain wo con Stat Reviewed imaging, laboratory and diagnostic studies. Pertinent findings as below. Echocardiogram: Normal left ventricular wall motion, ejection fraction 60 to 65%, no valvular disease, no pericardial effusion CTA of the chest: Negative for PE, moderate atelectasis, trace pleural effusions WBCs 5.9 Hemoglobin 14.2 Platelets of 123 Electrolytes stable Creatinine 0.41 Troponins negative x 4 sets BNP 60 Procalcitonin 0.03 COVID, influenza, RSV negative Pending Results Patient Have Any Pending Studies at Discharge: No Discharge Instructions Given to Patient (Per Discharging Provider) Follow-up with ALS clinic as scheduled We will be coordinating outpatient pulmonary office visit for you here locally Encourage incentive spirometry and flutter valve at home Home Health Attestation I certify that this patient is under my care and that I, or a physicians construction management assistant working with me, had a face to-face encounter that meets the home health [id number] encounter requirements with this patient. The encounter with the patient was in whole, or in part, for the following medic al condition, which is the primary reason for home health care (list medical condition): I certify that, based on my findings, the following services are medically necessary home health services: My clinical findings support the need for the above services because: Further, I certify that my clinical findings support that this patient is homebound (i.e. absences from home require considerable and taxing effort and are for medical reasons or congregational services or infrequently or of short duration when for other reasons) because: Certification for Home Health Services: Based on the above findings, I certify that this patient is confined to the home and needs intermittent chcf care, physical therapy and/or speech therapy or continues to need occupational therapy. The patient is under my care, and I have initiated the establishment of the plan of care. This patient will be followed by a physician who will periodically review the plan of care. Total Time Total Time Spent Total Time Spent (In Minutes): 36
--- NOTE | 2025-05-08 12:31 | Pulmonology Progress Note ---
Date of Service May 08, 2025 Assessment & Plan (1) Acute respiratory failure with hypoxia: (2) GERD (gastroesophageal reflux disease): (3) Atelectasis of both lungs: (4) ALS (amyotrophic lateral sclerosis): Plan CT chest 05/07/2025 personally reviewed: Motion degraded study Elevated right hemidiaphragm Dependent atelectasis bilateral lower lobes No significant mediastinal lymphadenopathy -- Acute hypoxic respiratory failure Likely secondary to VQ mismatch from atelectasis CT chest does not show any clear signs of pneumonia Respiratory panel negative for COVID-19, influenza A/B as well as RSV on 05/07/2025 Procalcitonin negative CRP 0.5, ESR 22 -- Patient has AVAPS machine at home and is compliant with it As per the patient's FVC was 46% predicted with a neurologist at [place] --History of pulmonary emboli Not on anticoagulation -- ALS On riluzole -- Alzheimer's disease On donanemab Plan: Based on the CAT scan of the chest I doubt patient has infection within the lungs He does have some atelectasis on lower part of the lungs. The etiology for the atelectasis of the lower part of the lungs is likely chest pain as he is not able to take a deep breath in. Would recommend to rule out etiologies for chest pain including but not limited to heart as well as reflux Continue with incentive spirometry Follow-up [facility] Continue with BiPAP/AVAPS nightly and as needed shortness of breath All questions and queries of patient as well as patient's answered in depth Case discussed with primary team Please note the above document was generated using voice recognition software. It may contain grammatical, syntax or spelling errors.Any formal questions or concerns about the content, text or information contained within the body of this dictation should be directly addressed to the provider for clarification. Admission and Anticipated Discharge Date Admission Date: May 07, 2025 Subjective Patient seen and examined at bedside. No acute distress, no adverse events overnight He was saturating 93% on 3 L, I went down to 2 L when I entered the room he was still saturating 93% at the end of examination, we went down to 1 L He stated that he is feeling better since he came to the hospital Does complain of cough and having difficulty bringing up the phlegm No hemoptysis Was asking if he could go home Appetite is fair Denies any difficulty swallowing Review of Systems 2 Review of Systems: All systems reviewed & are unremarkable except as noted in Subjective Physical Exam 2 Physical Exam: Constitutional: No acute distress HEENT: EOMI, PERRLA Respiratory system: Decreased air entry bilaterally, no wheeze, no rhonchi, mild crackles bilateral lower lobes CVS: S1-S2 positive, no murmurs or gallops Abdomen: Soft, nontender, nondistended, positive bowel sounds x4 Extremities: +2 pulses bilaterally radialis/ dorsalis pedis, no cyanosis, no edema Neuro: Awake alert oriented x3 Psych: Normal mood and affect G/U: No [place] Skin: no rashes, warm and dry Lymphatic: no cervical or axillary lymphadenopathy Results & Data Results & Data Vital Signs (Past 12 Hours) Vital Signs Temp Pulse Pulse Resp BP Pulse Ox O2 Del Method 05/08/25 11:40 36.6 C 60 20 105/55 L 93 Room Air 05/08/25 08:00 60 05/08/25 08:00 Nasal Cannula 05/08/25 07:50 36.6 C 61 16 117/56 L 94 Nasal Cannula 05/08/25 07:06 53 L 20 96 BiPAP 05/08/25 03:47 63 16 94 05/08/25 02:40 36.1 C L 53 L 18 108/67 94 Room Air, CPAP O2 Flow Rate 05/08/25 11:40 05/08/25 08:00 05/08/25 08:00 3 05/08/25 07:50 3 05/08/25 07:06 2 05/08/25 03:47 2 05/08/25 02:40 Laboratory Results 05/08/25 06:45 05/08/25 06:45 PG Care Time/CCT Total # of Minutes Spent Total Time Spent with Patient: Total time spent is greater than 50% in coordination of care (as documented) at patient's floor/unit and/or counseling patient: Coding Level of Care Code 12295 SUB INP/OBS CARE 2/35MIN Diagnoses Acute respiratory failure with hypoxia J96.01 GERD (gastroesophageal reflux disease) K21.9 Atelectasis of both lungs J98.11 ALS (amyotrophic lateral sclerosis) G12.21
[2025-05-08 15:39] VITALS: O2SAT 95
--- NOTE | 2025-05-10 06:06 | Electrocardiogram Report ---
Test Reason : Blood Pressure : */* mmHG Vent. Rate : 61 BPM Atrial Rate : 61 BPM P-R Int : 128 ms QRS Dur : 80 ms QT Int : 432 ms P-R-T Axes : 88 44 58 degrees QTcB Int : 434 ms Sinus rhythm with Premature atrial complexes Otherwise normal ECG When compared with ECG of 17-Sep-2023 20:47, Premature atrial complexes are now Present Confirmed by Ameya Garcia ([id number]) on 05/10/2025 6:06:41 AM Referred By: REFERRED SELF Confirmed By: Ameya Garcia
== END 2025-05-08 13:00 | disposition home or self-care (01) | DRG 206 ==
LOC: ED 14:10 → 2N 16:55 → SUATTDRO 16:55 → 2N 17:55